=== PATIENT | male | born 1960 | race Caucasian/White ===

== ENCOUNTER 2023-02-27 19:07 | Inpatient (IN) | payer OTHER, SELFPAY ==
--- NOTE | 2023-02-26 22:03 | PM.EVENT ---
Documented by User: Mili Stern, ENGINEERING DESIGN MANAGER 02/26/23 22:08 Event Note Date of Service: 02/26/23 Event Note: Medical clearance review completed with night retail asset protection specialist hospitalist [phone] who reports she does not know this pt but is reviewing records. She prefers pt transfer on 02/27/23 a.m. as the hospitalist who works with him will be able to help with discharge. Pt has stable anemia, labs wnl. Heart rate range 50's-60's, EF 35%. No current atrial fibrillation. Pt has a wound on his right foot which has grown MRSA-he is on PO regime with full MRSA precautions. Time Spent With Patient Time: Total time managing care of this patient today ____ minutes. Documented by User: Russ Lewis MD 03/01/23 18:37 Event Note Date of Service: 03/01/23
--- NOTE | ~2023-02-27 | US_ITS ---
EXAMINATION: Ultrasound RADHA complete CLINICAL INFORMATION: Foot wound COMPARISON: Bilateral lower extremity arterial ultrasound from yesterday TECHNIQUE: Ankle pulse volume recordings, ankle pressure measurements and ankle brachial indices were obtained of the lower extremity arterial system bilaterally FINDINGS: Pulse volume recording waveforms are normal bilaterally. ABIs are normal bilaterally. The right RADHA measures 1.07. The left RADHA measures 1.15. US/US RADHA complete IMPRESSION: Normal arterial pulse volume recordings and ankle brachial indices.
--- NOTE | ~2023-02-27 | US_ITS ---
EXAMINATION: NONINVASIVE ASSESSMENT OF THE ARTERIES OF BOTH LOWER EXTREMITIES WITH BILATERAL LOWER EXTREMITY DUPLEX CLINICAL INFORMATION: Foot wound. TECHNIQUE: Bilateral duplex Doppler techniques with wave form analysis and measurement of velocities in the common femoral, profunda femoral, superficial femoral, popliteal and tibial arteries. The study was performed only at rest. COMPARISON: None FINDINGS: a) AT REST: RIGHT LE. Right direct duplex Doppler findings: Mild vessel wall calcification * Common femoral artery: 139 cm/s, Diastolic flow reversal: Yes * Superficial femoral artery (proximal, mid, distal): 111, 1-2 and 104 cm/s, Diastolic flow reversal: Yes * Popliteal artery: 120 cm/s, Diastolic flow reversal: Yes * Posterior tibial artery: 132 cm/s, Diastolic flow reversal: Yes LEFT LE. Left direct duplex Doppler findings: Mild vessel wall calcification luminal narrowing seen in the left posterior tibial artery. * Common femoral artery: 141 cm/s, Diastolic flow reversal: Yes * Superficial femoral artery (proximal, mid, distal): 131, 111 and 79 cm/s, Diastolic flow reversal: Yes * Popliteal artery: 128 cm/s, Diastolic flow reversal: Yes * Posterior tibial artery: 157 cm/s, Diastolic flow reversal: No. Monophasic. * US/US arterial duplex LE BI IMPRESSION: Mild proximal atherosclerotic disease. 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
--- NOTE | 2023-02-28 00:36 | PC.NURSE ---
Pt signed a 3 day on 02/27/2023, which should be up on 03/05/23.
[2023-02-28 02:27] VITALS: BMI 32.0
--- NOTE | 2023-02-28 05:08 | PC.NURSE ---
Reviewed MRSA diagnosis pt has,with Dr. Gomez, stated pt was cleared medically and does not need to be in private room/isolation.
--- NOTE | 2023-02-28 05:36 | PC.ADMIT ---
Pt is a 63 yo male admitted to the unit from a medical unit in [facility] after referral from CARE Team. Pt arrived on unit at 1930 on 02/27/2023. Pt signed a CV and shortly afterward signed a 3 day notice. Pt's medical issues are: AFib, cardiomyopathy, Cirrhosis, Hep C, COPD, MRSA infection in wound on right foot, dependent rubor of LE's, bilaterally as well as obstructive sleep apnea. Pt ambulates independently with a cane. Pt has a hx of etoh abuse, cocaine abuse and amphetamine abuse. Crisis report states that he recently relapsed on cocaine, amphetamines and etoh. States he last used cocaine and etoh prior to admission and was drinking a pint of vodka daily. 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 Pt reports that he has to be in court on Thursday, March 04 for charges of disturbing the peace . Pt reports intermittent years of sobriety followed by relapse over the last 30 years. Crisis report states he was increasingly depressed over his relapse and medical issues and his inability to get meds and connect with his OP providers. Pt states he is chronically homeless and had a plan to hang himself in the [place] and that he is big time suicidal and that a suicide attempt is extremely likely to occur if he were discharged from the hospital. Pt presented as pleasant and cooperative, good eye contact with linear thought process. call center agent provider Patricia notified of admission and orders obtained. Pt placed on 15 minute checks for safety. Reports feeling safe in hospital.
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
[2023-02-28 09:30] VITALS: BP 96/56; PULSE 72; RESP 18; TEMP 36.8; O2SAT 95
[2023-02-28] MEDS: Nicotine 21 MG PATCH.TD24 TRANSDERMA (09:36)
[2023-02-28] MEDS: Pregabalin 150 MG CAPSULE PO ×3 (09:37→18:19)
[2023-02-28] MEDS: Apixaban 5 MG TABLET PO ×2 (09:37→21:49)
[2023-02-28] MEDS: Cariprazine HCl 1.5 MG CAPSULE 4.5 MG PO (09:37)
[2023-02-28] MEDS: Aspirin Enteric Coated 81 MG TABLET.DR PO (09:38)
[2023-02-28] MEDS: Buprenorphine/Naloxone 8/2 mg FILM 1 FILM SUBLINGUAL ×3 (09:38→18:19)
[2023-02-28] MEDS: Linezolid 600 MG TABLET PO ×2 (10:10→21:49)
[2023-02-28] MEDS: Metoprolol Succinate ER 50 MG TAB.ER.24H PO (10:10)
[2023-02-28] MEDS: Amiodarone HCL 200 MG TABLET PO (10:10)
[2023-02-28] MEDS: diphenhydrAMINE HCL 25 MG CAPSULE PO ×2 (10:11→21:48)
[2023-02-28] MEDS: Sacubitril/Valsartan 24/26 1 TAB TABLET PO ×2 (10:11→21:49)
--- NOTE | 2023-02-28 10:26 | HO.PM.IMCN ---
History of Present Illness Data of Consult Service Date: 02/28/23 Requesting physician: Zaid Gomez Primary Care Provider: Ken Gauthier MD HPI 63-year-old man with history of CHF, AFib, cardiomyopathy, asthma, MRSA, COPD, SAILAJA admitted to for psychiatric care. Patient at this time has a wound to his right dorsal foot. He reports that this happened about a month ago, he developed lower extremity edema, was admitted to the hospital and felt like a vein had popped . He reports he had no treatment for this but was told he had MRSA and had been placed on antibiotics. On admission to [facility] does appear that he has been on linezolid. Other than that the patient has no other acute medical complaints is at this point hemodynamically stable. Medical consultation was placed for routine physical. Review of Systems Review of Systems: Denies any recent fever chills or decrease in appetite respiratory denies any shortness of breath coverage production cardiovascular Denied chest pain, reported lower extremity swelling gastrointestinal denies any dysphagia abdominal pain nausea vomiting or diarrhea genitourinary denies any dysuria frequency or hematuria musculoskeletal denies any joint pain or swelling neuropsych denies any weakness or seizures all other systems reviewed are negative [facility] Medical History Alcohol abuse Asthma Atrial fibrillation Cardiomyopathy CHF (congestive heart failure) Cocaine abuse Hepatitis C Hypertension MRSA (methicillin resistant staph aureus) culture positive Obstructive sleep apnea Pertinent family history: denied cardiac disease Social History Household Members: Friend(s) Housing: House Do you presently have visiting nurse or other home services: No Patient Tobacco Use Status: Current everyday Tobacco user Tobacco use type: Cigarette Cigarette Packs Per Day: 1 Cigarettes Per Day: 20.0 e-Cigarette/Vaping Use: Currently Using Patient Interested in Nicotine Replacement: Yes Use of substances other than those prescribed or required for medical reasons: No Substance Use Type: Amphetamines, Crack/Cocaine and IV Drugs Have you been hit, kicked, punched, or otherwise hurt by someone within the past year? If so, by whom?: No Do you feel safe in your current relationship?: Yes Is there a partner from a previous relationship who is making you feel unsafe now?: No Are you made to feel afraid or neglected: No Advance Directives: No Advance Directives Information Provided: No Do you have thoughts of harming others: None Do you have a plan to hurt others: No Plan Recently lost weight without trying: No Nutrition Risks: No Nutritional Risk Poor oral hygiene: No service: No Sexual orientation: Straight/Heterosexual Meds Allergies Allergy/AdvReac Type Severity Reaction Status Date / Time cefuroxime AdvReac Unknown Verified 02/27/23 23:26 codeine AdvReac Hives Verified 02/27/23 23:26 shellfish derived AdvReac Anaphylaxis Verified 02/27/23 23:26 Active Medications: Current Medications Acetaminophen (Acetaminophen 325 Mg Tablet) 650 mg PO Q6H PRN PRN Reason: Headache/Pain Mild Scale (1-3) Al Hydroxide/Mg Hydroxide (Magnesium Hydrox/Alum Hydrox 30 Ml Oral.Susp) 30 ml PO Q6H PRN PRN Reason: Heartburn/Nausea Albuterol Sulfate (Albuterol Sulfate 90 Mcg 8 Gm Inhaler) 1 puff INHALE Q6H PRN PRN Reason: Wheezing Amiodarone HCl (Amiodarone Hcl 200 Mg Tablet) 200 mg PO DAILY [facility] Last Admin: 02/28/23 10:10 Dose: 200 mg Apixaban (Apixaban 5 Mg Tablet) 5 mg PO BID [facility] Last Admin: 02/28/23 09:37 Dose: 5 mg Aspirin (Aspirin Enteric Coated 81 Mg Tablet.Dr) 81 mg PO DAILY [facility] Last Admin: 02/28/23 09:38 Dose: 81 mg Buprenorphine/Naloxone (Buprenorphine/Naloxone 8/2 Mg Film) 1 film SUBLINGUAL TID [facility] Last Admin: 02/28/23 09:38 Dose: 1 film Cariprazine (Cariprazine Hcl 1.5 Mg Capsule) 4.5 mg PO DAILY [facility] Last Admin: 02/28/23 09:37 Dose: 4.5 mg Clonazepam (Clonazepam 0.5 Mg Tablet) 0.5 mg PO BID PRN PRN Reason: anxiety Diphenhydramine HCl (Diphenhydramine Hcl 25 Mg Capsule) 25 mg PO Q6H PRN PRN Reason: Itching Last Admin: 02/28/23 10:11 Dose: 25 mg Fluticasone/Vilanterol (Fluticasone/Vilanterol 200/25 Blst.W.Dev) 1 puff INHALE RDAILY [facility] Furosemide (Furosemide 20 Mg Tablet) 20 mg PO DAILY [facility] Last Admin: 02/28/23 10:17 Dose: Not Given Hydroxyzine HCl (Hydroxyzine Hcl 25 Mg Tablet) 25 mg PO Q6H PRN PRN Reason: Anxiety Ibuprofen (Ibuprofen 400 Mg Tablet) 400 mg PO TIDWM [facility] Linezolid (Linezolid 600 Mg Tablet) 600 mg PO Q12H [facility] Last Admin: 02/28/23 10:10 Dose: 600 mg Magnesium Hydroxide (Milk Of Magnesia 30 Ml Oral.Susp) 30 ml PO DAILY PRN PRN Reason: Constipation Metoprolol Succinate (Metoprolol Succinate Er 50 Mg Tab.Er.24h) 50 mg PO DAILY [facility]; Protocol Last Admin: 02/28/23 10:10 Dose: 50 mg Nicotine (Nicotine 21 Mg Patch.Td24) 21 mg TRANSDERMA DAILY [facility] Last Admin: 02/28/23 09:36 Dose: 21 mg Nicotine Polacrilex (Nicotine Polacrilex 2 Mg Gum) 4 mg BUCCAL Q2H PRN PRN Reason: Nicotine Cravings Non-Formulary Medication (Eplerenone) 25 mg PO DAILY [facility] Pt Own (Camphor- (Menthol Lotion)) 1 applic TOPICAL BID PRN PRN Reason: Itching Olanzapine (Olanzapine 5 Mg Tablet) 5 mg PO TID PRN PRN Reason: agitation Omeprazole (Omeprazole 20 Mg Capsule.Dr) 20 mg PO DAILY@1630 [facility] Oxycodone HCl (Oxycodone Hcl Immed Release 5 Mg Tablet) 5 mg PO Q6H PRN PRN Reason: Pain, Severe Prazosin HCl (Prazosin Hcl 1 Mg Capsule) 4 mg PO BEDTIME [facility]; Protocol Pregabalin (Pregabalin 150 Mg Capsule) 150 mg PO TID [facility] Last Admin: 02/28/23 09:37 Dose: 150 mg Sacubitril/Valsartan (Sacubitril/Valsartan 1 Tab Tablet) 1 tab PO BID [facility]; Protocol Last Admin: 02/28/23 10:11 Dose: 1 tab Tiotropium Langley (Tiotropium Langley 2.5 Mcg Inhaler) 2 puff INHALE RDAILY [facility] Trazodone HCl (Trazodone Hcl 50 Mg Tablet) 50 mg PO BEDTIME MRX1 PRN PRN Reason: Insomnia Physical Exam Vital Signs and Narrative: Vital Signs: BMI result Body Mass Index 32.0 Appearing in no acute distress head is normocephalic atraumatic eyes pupils are PERRLA sclera is anicteric mouth throat mucous membranes are intact and moist neck is supple no lymphadenopathy, no JVD noted lung sounds are clear to auscultation heart regular rate rhythm, clear S1, S2 positive bowel sounds, abdomen is soft, nontender neuro patient is alert x3, no focal deficits Right foot dorsal wound, pink granulating tissue noted, no eschar, dry skin to plantar aspect of foot Results Labs 03/03/23 10:36 03/03/23 10:36 Assessment and Plan (1) Major depression: Status: Acute Plan 63-year-old man with multiple chronic medical problems admitted to [facility] for psychiatric care Vascular foot wound. Unspecified No previous history of peripheral vascular disease Will obtain a BI, vascular surgery consultation Continue aspirin Nonstick dressing to right dorsal foot wound Recent history of MRSA, likely in the right foot wound Infectious disease consultation Cardiomyopathy. Unspecified appears euvolemic Continue Entresto Obtain baseline echocardiogram Atrial fibrillation No RVR Continue metoprolol, amiodarone and Eliquis Obstructive sleep apnea Will order CPAP COPD. No exacerbation Continue Breo and Spiriva Hepatitis-C Treated previously History of alcohol abuse Monitor for any signs of withdrawal May placed on CIWA scale if needed Substance abuse Reports history of occasional cocaine use On Suboxone for opiate use Obesity. BMI 32.0 Discussed importance of weight management as this may be contributing to worsening of other comorbidities DVT prophylaxis with Eliquis Time Spent With Patient Time: Total time managing care of this patient today ____ minutes.
[2023-02-28 10:33] VITALS: BP 113/65; PULSE 71; O2SAT 96
[2023-02-28] MEDS: Fluticasone/Vilanterol 200/25 BLST.W.DEV 1 PUFF INHALE (11:16)
[2023-02-28 16:07] VITALS: BMI 29.0
[2023-02-28] MEDS: Ibuprofen 400 MG TABLET PO (17:23)
[2023-02-28] MEDS: Omeprazole 20 MG CAPSULE.DR PO (17:23)
[2023-02-28 20:25] VITALS: BP 107/61; PULSE 63; RESP 18; TEMP 36.7; O2SAT 97
[2023-02-28] MEDS: clonazePAM 0.5 MG TABLET PO (21:48)
[2023-02-28] MEDS: Prazosin HCL 1 MG CAPSULE 4 MG PO (21:49)
[2023-03-01 09:08] VITALS: BP 113/53; PULSE 90; RESP 16; TEMP 36.6; O2SAT 97
[2023-03-01] MEDS: Sacubitril/Valsartan 24/26 1 TAB TABLET PO ×2 (09:10→20:36)
[2023-03-01] MEDS: Metoprolol Succinate ER 50 MG TAB.ER.24H PO (09:10)
[2023-03-01] MEDS: Nicotine 21 MG PATCH.TD24 TRANSDERMA (09:10)
[2023-03-01] MEDS: Furosemide 20 MG TABLET PO (09:11)
[2023-03-01] MEDS: Cariprazine HCl 1.5 MG CAPSULE 4.5 MG PO (09:11)
[2023-03-01] MEDS: Aspirin Enteric Coated 81 MG TABLET.DR PO (09:11)
[2023-03-01] MEDS: Ibuprofen 400 MG TABLET PO ×3 (09:12→17:50)
[2023-03-01] MEDS: Apixaban 5 MG TABLET PO ×2 (09:12→20:36)
[2023-03-01] MEDS: Linezolid 600 MG TABLET PO ×2 (09:12→20:36)
[2023-03-01] MEDS: Fluticasone/Vilanterol 200/25 BLST.W.DEV 1 PUFF INHALE (09:14)
[2023-03-01] MEDS: Pregabalin 150 MG CAPSULE PO ×3 (09:15→17:50)
[2023-03-01] MEDS: Amiodarone HCL 200 MG TABLET PO (09:15)
[2023-03-01] MEDS: Buprenorphine/Naloxone 8/2 mg FILM 1 FILM SUBLINGUAL ×3 (09:18→18:39)
--- NOTE | 2023-03-01 09:25 | HO.PSYCHPN ---
Subjective Subjective Date of Service: 03/01/23 Reason For Visit: F33.2, F10.20, F14.10 Subjective Notes: Conditional Voluntary and 3 Day Healthcare Proxy: No Guardianship: No Medical Problems Affecting Mental Status: Yes (Right foot wound/MRSA) Interim History: Patient was seen and discussed in rounds today. Records and plans were reviewed. He has settled in but is eager to leave soon. He did receive his CPAP but did not want to use it because he did not want to have somebody sitting there with him as is the policy here. He is requesting something for dry skin on his knees, lower leg and shoulders which I ordered. No other complaints. No side effects. No changes were made otherwise. Medication Compliance: Yes Side effects from medications: No Attending Groups: Yes Review of Systems Review of Systems Right foot wound Yes all other systems are reviewed and are negative Mental Status Exam Mental Status Exam Narrative: In today's visit he is alert, oriented and pleasant. Normal speech. Little eye contact. He is able to give adequate information with spontaneity and elaboration. No auditory or visual hallucinations. No delusions. He denies any current suicidal ideations and states that his comments at the other hospital was because of frustration over his medical problems and physical impediment. Judgment is intact Diagnostics Vital Signs (24Hr): Vital Signs - 24 hr 02/28/23 09:30 02/28/23 10:33 02/28/23 20:25 Temperature 98.3 F 98.0 F Pulse Rate 72 71 63 Respiratory Rate 18 18 Blood Pressure 96/56 L 113/65 107/61 Pulse Oximetry 95 96 97 Oxygen Delivery Method Room Air Room Air Room Air 03/01/23 09:08 Temperature 97.9 F Pulse Rate 90 Respiratory Rate 16 Blood Pressure 113/53 L Pulse Oximetry 97 Oxygen Delivery Method Room Air BMI result Body Mass Index 29.0 Medications Medications Current Medications Acetaminophen (Acetaminophen 325 Mg Tablet) 650 mg PO Q6H PRN PRN Reason: Headache/Pain Mild Scale (1-3) Al Hydroxide/Mg Hydroxide (Magnesium Hydrox/Alum Hydrox 30 Ml Oral.Susp) 30 ml PO Q6H PRN PRN Reason: Heartburn/Nausea Albuterol Sulfate (Albuterol Sulfate 90 Mcg 8 Gm Inhaler) 1 puff INHALE Q6H PRN PRN Reason: Wheezing Amiodarone HCl (Amiodarone Hcl 200 Mg Tablet) 200 mg PO DAILY [facility] Last Admin: 03/01/23 09:15 Dose: 200 mg Apixaban (Apixaban 5 Mg Tablet) 5 mg PO BID [facility] Last Admin: 03/01/23 09:12 Dose: 5 mg Aspirin (Aspirin Enteric Coated 81 Mg Tablet.Dr) 81 mg PO DAILY [facility] Last Admin: 03/01/23 09:11 Dose: 81 mg Buprenorphine/Naloxone (Buprenorphine/Naloxone 8/2 Mg Film) 1 film SUBLINGUAL 0900,1300,1800 [facility] Last Admin: 03/01/23 09:18 Dose: 1 film Cariprazine (Cariprazine Hcl 1.5 Mg Capsule) 4.5 mg PO DAILY [facility] Last Admin: 03/01/23 09:11 Dose: 4.5 mg Clonazepam (Clonazepam 0.5 Mg Tablet) 0.5 mg PO BID PRN PRN Reason: anxiety Last Admin: 02/28/23 21:48 Dose: 0.5 mg Diphenhydramine HCl (Diphenhydramine Hcl 25 Mg Capsule) 25 mg PO Q6H PRN PRN Reason: Itching Last Admin: 02/28/23 21:48 Dose: 25 mg Fluticasone/Vilanterol (Fluticasone/Vilanterol 200/25 Blst.W.Dev) 1 puff INHALE RDAILY [facility] Last Admin: 03/01/23 09:14 Dose: 1 puff Furosemide (Furosemide 20 Mg Tablet) 20 mg PO DAILY [facility] Last Admin: 03/01/23 09:11 Dose: 20 mg Hydroxyzine HCl (Hydroxyzine Hcl 25 Mg Tablet) 25 mg PO Q6H PRN PRN Reason: Anxiety Ibuprofen (Ibuprofen 400 Mg Tablet) 400 mg PO TIDWM [facility] Last Admin: 03/01/23 09:12 Dose: 400 mg Linezolid (Linezolid 600 Mg Tablet) 600 mg PO Q12H [facility] Last Admin: 03/01/23 09:12 Dose: 600 mg Magnesium Hydroxide (Milk Of Magnesia 30 Ml Oral.Susp) 30 ml PO DAILY PRN PRN Reason: Constipation Metoprolol Succinate (Metoprolol Succinate Er 50 Mg Tab.Er.24h) 50 mg PO DAILY [facility]; Protocol Last Admin: 03/01/23 09:10 Dose: 50 mg Nicotine (Nicotine 21 Mg Patch.Td24) 21 mg TRANSDERMA DAILY [facility] Last Admin: 03/01/23 09:10 Dose: 21 mg Nicotine Polacrilex (Nicotine Polacrilex 2 Mg Gum) 4 mg BUCCAL Q2H PRN PRN Reason: Nicotine Cravings Non-Formulary Medication (Eplerenone) 25 mg PO DAILY [facility] Pt Own (Camphor- (Menthol Lotion)) 1 applic TOPICAL BID PRN PRN Reason: Itching Last Admin: 03/01/23 09:14 Dose: 1 applic Olanzapine (Olanzapine 5 Mg Tablet) 5 mg PO TID PRN PRN Reason: agitation Omeprazole (Omeprazole 20 Mg Capsule.Dr) 20 mg PO DAILY@1630 [facility] Last Admin: 02/28/23 17:23 Dose: 20 mg Oxycodone HCl (Oxycodone Hcl Immed Release 5 Mg Tablet) 5 mg PO Q6H PRN PRN Reason: Pain, Severe Prazosin HCl (Prazosin Hcl 1 Mg Capsule) 4 mg PO BEDTIME [facility]; Protocol Last Admin: 02/28/23 21:49 Dose: 4 mg Pregabalin (Pregabalin 150 Mg Capsule) 150 mg PO 0900,1300,1800 [facility] Last Admin: 03/01/23 09:15 Dose: 150 mg Sacubitril/Valsartan (Sacubitril/Valsartan 1 Tab Tablet) 1 tab PO BID [facility]; Protocol Last Admin: 03/01/23 09:10 Dose: 1 tab Tiotropium [place] (Tiotropium [place] 2.5 Mcg Inhaler) 2 puff INHALE RDAILY [facility] Last Admin: 03/01/23 09:14 Dose: 2 puff Trazodone HCl (Trazodone Hcl 50 Mg Tablet) 50 mg PO BEDTIME MRX1 PRN PRN Reason: Insomnia Allergies Allergies Allergy/AdvReac Type Severity Reaction Status Date / Time cefuroxime AdvReac Unknown Verified 02/27/23 23:26 codeine AdvReac Hives Verified 02/27/23 23:26 shellfish derived AdvReac Anaphylaxis Verified 02/27/23 23:26 Assessment & Plan Assessment & Plan (1) Major depression: Status: Acute Code(s): F32.9 - Major depressive disorder, single episode, unspecified Plan 63-year-old man with multiple chronic medical problems admitted to for psychiatric care Vascular foot wound. Unspecified No previous history of peripheral vascular disease Will obtain a BI, vascular surgery consultation Continue aspirin Nonstick dressing to right dorsal foot wound Recent history of MRSA, likely in the right foot wound Infectious disease consultation Cardiomyopathy. Unspecified appears euvolemic Continue Entresto Obtain baseline echocardiogram Atrial fibrillation No RVR Continue metoprolol, amiodarone and Eliquis Obstructive sleep apnea Will order CPAP COPD. No exacerbation Continue Breo and Spiriva Hepatitis-C Treated previously History of alcohol abuse Monitor for any signs of withdrawal May placed on CIWA scale if needed Substance abuse Reports history of occasional cocaine use On Suboxone for opiate use Obesity. BMI 32.0 Discussed importance of weight management as this may be contributing to worsening of other comorbidities DVT prophylaxis with Eliquis 03/01: Continue current plans and regimen Reason for continued inpatient stay Substantial Risk for: harm to self Time Spent With Patient Time: Total time managing care of this patient today ____ minutes.
[2023-03-01] MEDS: Capsaicin 0.025% Cream 60 GM TUBE 1 APPL TOPICAL (11:02)
[2023-03-01] MEDS: Omeprazole 20 MG CAPSULE.DR PO (17:50)
[2023-03-01 20:42] VITALS: BP 100/58; PULSE 67; TEMP 36.3; O2SAT 97
[2023-03-01] MEDS: hydrOXYzine HCL 25 MG TABLET PO (20:57)
--- NOTE | 2023-03-02 04:01 | PC.RT ---
Pt refused to wear CPAP
--- NOTE | 2023-03-02 07:00 | CA_ITS ---
Transthoracic Echocardiogram Patient (Last, First, Middle): Tre Richmond, Gender: Male Date of : 1960 Age: 63 Procedure Date: 03/02/2023 Procedure Type: Transthoracic Echocardiogram Location: [address] Height: 187.96 cm Weight: 105.69 kg BSA: 2.32 m2 Heart Rate: bpm BP: 100 / 58 mmHg Crew Supervisor: Referring MD: Dana Kathleen NP Symptoms: CMP Study Quality: Adequate ECG Rhythm: Sinus Conclusions: - Mildly increased left ventricular cavity size. There is mildly increased left ventricular wall thickness. The left ventricular systolic function is normal. The visually estimated ejection fraction is between 55-60%. - E/E prime ratio is between 8 and 15 consistent with indeterminate filling pressures. - There is normal right ventricular systolic function. Mild to moderate RV dilation. - There is mild dilatation of the ascending aorta measuring 4.20 cm. Findings Left Ventricle Mildly increased left ventricular cavity size. There is mildly increased left ventricular wall thickness. The left ventricular systolic function is normal. The visually estimated ejection fraction is between 55-60%. There is no evidence of regional wall motion abnormalities. Abnormal diastolic function is noted. Spectral Doppler is indicative of a pseudonormal filling pattern. E/E prime ratio is between 8 and 15 consistent with indeterminate filling pressures. Right Ventricle There is normal right ventricular systolic function. Mild to moderate RV dilation. Atria The left atrium is moderately dilated. Aortic Valve Normal aortic valve structure and function. There is no aortic valve stenosis. There is no aortic valve regurgitation. Mitral Valve The mitral valve appears normal. There is trace mitral valve regurgitation. There is no mitral valve stenosis. Pulmonic Valve The pulmonic valve is likely normal. Tricuspid Valve Normal tricuspid valve structure and function. The right ventricular systolic pressure is 30 mmHg. Normal right atrial pressure. There is no evidence of pulmonary hypertension. Great Vessels There is mild dilatation of the ascending aorta measuring 4.20 cm. The visualized portions of the pulmonary artery and branches are normal. Venous The inferior vena cava is normal in size and collapses greater than 50% with inspiration. Pericardium/Pleural There is no evidence of pericardial effusion. Prior Study Comparison No prior study available for comparison. Measurements 2D Linear Measurements IVSd: 1.04 0.6-0.9/0.6-1.0 cm LVIDd: 5.33 3.9-5.3/4.2-5.9 cm LVIDd Index: 2.30 2.4-3.2/2.2-3.1 cm/m2 LVIDs: 3.37 2.0-3.6 cm LVPWd: 1.13 0.7-1.1 cm Ao Root: 3.60 2.1-3.5 cm LA Diam: 4.50 2.7-3.8/3.0-4.0 cm LAIDs Index: 1.94 1.5-2.3 cm/m2 LV Mass: 281.27 67-162/88-224 g LV Mass Index: 121.24 43-95/49-115 g/m2 LVOT Diam: 2.40 3.0+(-)1.3 cm 2D Systolic Function EF 4C: 59.90 >55% EF 2C: 57.30 >55% EF BiP: 61.00 >55% Mitral Valve MV Pk E: 0.75 MV PK A: 0.53 MV Decel Time: 227.00 E/A: 1.40 E'Lateral: 9.46 E'Medial: 4.68 E/E' Med: 16.00 E/E' Lat: 7.90 PHT: 66.00 MVA PHT: 3.33 Decel Roane: 3.31 Aortic Valve AoV Pk Angel: 1.43 AoV Mn Angel: 0.89 AoV VTI: 0.35 AoV Pk Grad: 8.00 Aov Mn Grad: 4.00 WILLIAN Cont.VTI: 2.90 LVOT LVOT Pk Angel: 1.03 LVOT Mn Angel: 0.70 LVOT VTI: 0.22 LVOT Pk Grad: 4.00 LVOT Mn Grad: 2.00 LVOT Diam: 2.40 LVOT Area: 4.52 Diastolic Function MV Pk E: 0.75 MV Pk A: 0.53 E/A: 1.40 E'Medial: 4.68 E/E' Med: 16.00 E' Laterial: 9.46 E/E' Lat: 7.90 Right Ventricle TAPSE (mm): 34.00 TVS' Angel: 17.00 Tricuspid Valve TR Pk Angel: 2.59 TR Pk Grad: 27.00 RA Press: 3.00 RVSP: 30.00 Great Vessels Aorta Ao Root-2D: 3.60 2.0-3.7 cm Ao Asc: 4.20 2.1-3.4 cm Pulmonary Valve PV Pk Angel: 1.29 Peak PV Grad: 7.00 Updated in Other Vendor System with Status of Final Reji Perez MD electronically signed on 03/02/2023 8:33:26 PM with status of Final
[2023-03-02 09:15] VITALS: BP 112/68; PULSE 68; RESP 16; TEMP 36.7; O2SAT 95
[2023-03-02] MEDS: Nicotine 21 MG PATCH.TD24 TRANSDERMA (09:16)
[2023-03-02] MEDS: Linezolid 600 MG TABLET PO ×2 (09:17→21:26)
[2023-03-02] MEDS: Furosemide 20 MG TABLET PO (09:17)
[2023-03-02] MEDS: Apixaban 5 MG TABLET PO ×2 (09:17→21:27)
[2023-03-02] MEDS: Sacubitril/Valsartan 24/26 1 TAB TABLET PO ×2 (09:17→21:26)
[2023-03-02] MEDS: Pregabalin 150 MG CAPSULE PO ×3 (09:17→18:23)
[2023-03-02] MEDS: Cariprazine HCl 1.5 MG CAPSULE 4.5 MG PO (09:17)
[2023-03-02] MEDS: Amiodarone HCL 200 MG TABLET PO (09:18)
[2023-03-02] MEDS: Metoprolol Succinate ER 50 MG TAB.ER.24H PO (09:18)
[2023-03-02] MEDS: Aspirin Enteric Coated 81 MG TABLET.DR PO (09:18)
[2023-03-02] MEDS: Ibuprofen 400 MG TABLET PO ×3 (09:18→17:32)
[2023-03-02] MEDS: Buprenorphine/Naloxone 8/2 mg FILM 1 FILM SUBLINGUAL ×3 (09:18→18:23)
[2023-03-02] MEDS: Fluticasone/Vilanterol 200/25 BLST.W.DEV 1 PUFF INHALE (09:20)
[2023-03-02] MEDS: oxyCODONE HCl Immed Release 5 MG TABLET PO ×2 (10:55→17:32)
--- NOTE | 2023-03-02 10:55 | P.PNPSI_ITS ---
Subjective Subjective Date of Service: 03/02/23 Reason For Visit: F33.2, F10.20, F14.10 Subjective Notes: Conditional Voluntary and 3 Day Healthcare Proxy: No Guardianship: No Medical Problems Affecting Mental Status: Yes (Right foot wound/MRSA) Interim History: Patient was seen and discussed in rounds today. Records and plans were reviewed. He has been cooperative and has settled in well. He continues to complain of right shoulder pain. He is isolative or pacing. He does have restless sleep but still does not want use the CPAP. He also refused prazosin. No other complaints. No changes were made today. No SI reported Medication Compliance: Yes Side effects from medications: No Attending Groups: Yes Review of Systems Review of Systems Right shoulder and knee pain Yes all other systems are reviewed and are negative Mental Status Exam Mental Status Exam Narrative: In today's visit he is alert, oriented and pleasant. Normal speech. Little eye contact. He is able to give adequate information with spontaneity and elaboration. No auditory or visual hallucinations. No delusions. He denies any current suicidal ideations and states that his comments at the other hospital was because of frustration over his medical problems and physical impediment. Judgment is intact Diagnostics Vital Signs (24Hr): Vital Signs - 24 hr 03/01/23 20:42 03/02/23 09:15 Temperature 97.4 F 98.0 F Pulse Rate 67 68 Respiratory Rate 16 Blood Pressure 100/58 L 112/68 Pulse Oximetry 97 95 Oxygen Delivery Method Room Air Room Air BMI result Body Mass Index 29.0 Imaging Radiology Impressions: ITS Impressions Duplex Scan Lower Extremity Artery 02/28/23 14:25 IMPRESSION: Mild proximal atherosclerotic disease. 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 Abd US [id number] 03/01/23 14:00 IMPRESSION: Normal arterial pulse volume recordings and ankle brachial indices. Medications Medications Current Medications Acetaminophen (Acetaminophen 325 Mg Tablet) 650 mg PO Q6H PRN PRN Reason: Headache/Pain Mild Scale (1-3) Al Hydroxide/Mg Hydroxide (Magnesium Hydrox/Alum Hydrox 30 Ml Oral.Susp) 30 ml PO Q6H PRN PRN Reason: Heartburn/Nausea Albuterol Sulfate (Albuterol Sulfate 90 Mcg 8 Gm Inhaler) 1 puff INHALE Q6H PRN PRN Reason: Wheezing Amiodarone HCl (Amiodarone Hcl 200 Mg Tablet) 200 mg PO DAILY [facility] Last Admin: 03/02/23 09:18 Dose: 200 mg Apixaban (Apixaban 5 Mg Tablet) 5 mg PO BID [facility] Last Admin: 03/02/23 09:17 Dose: 5 mg Aspirin (Aspirin Enteric Coated 81 Mg Tablet.Dr) 81 mg PO DAILY [facility] Last Admin: 03/02/23 09:18 Dose: 81 mg Buprenorphine/Naloxone (Buprenorphine/Naloxone 8/2 Mg Film) 1 film SUBLINGUAL 0900,1300,1800 [facility] Last Admin: 03/02/23 09:18 Dose: 1 film Capsaicin (Capsaicin 0.025% Cream 60 Gm Tube) 1 appl TOPICAL TID PRN; Protocol PRN Reason: Pain, Moderate(Pain Scale 4-6) Last Admin: 03/01/23 11:02 Dose: 1 appl Cariprazine (Cariprazine Hcl 1.5 Mg Capsule) 4.5 mg PO DAILY [facility] Last Admin: 03/02/23 09:17 Dose: 4.5 mg Clonazepam (Clonazepam 0.5 Mg Tablet) 0.5 mg PO BID PRN PRN Reason: anxiety Last Admin: 02/28/23 21:48 Dose: 0.5 mg Diphenhydramine HCl (Diphenhydramine Hcl 25 Mg Capsule) 25 mg PO Q6H PRN PRN Reason: Itching Last Admin: 02/28/23 21:48 Dose: 25 mg Fluticasone/Vilanterol (Fluticasone/Vilanterol 200/25 Blst.W.Dev) 1 puff INHALE RDAILY [facility] Last Admin: 03/02/23 09:20 Dose: 1 puff Furosemide (Furosemide 20 Mg Tablet) 20 mg PO DAILY [facility] Last Admin: 03/02/23 09:17 Dose: 20 mg Hydroxyzine HCl (Hydroxyzine Hcl 25 Mg Tablet) 25 mg PO Q6H PRN PRN Reason: Anxiety Last Admin: 03/01/23 20:57 Dose: 25 mg Ibuprofen (Ibuprofen 400 Mg Tablet) 400 mg PO TIDWM [facility] Last Admin: 03/02/23 09:18 Dose: 400 mg Linezolid (Linezolid 600 Mg Tablet) 600 mg PO Q12H [facility] Last Admin: 03/02/23 09:17 Dose: 600 mg Magnesium Hydroxide (Milk Of Magnesia 30 Ml Oral.Susp) 30 ml PO DAILY PRN PRN Reason: Constipation Metoprolol Succinate (Metoprolol Succinate Er 50 Mg Tab.Er.24h) 50 mg PO DAILY [facility]; Protocol Last Admin: 03/02/23 09:18 Dose: 50 mg Nicotine (Nicotine 21 Mg Patch.Td24) 21 mg TRANSDERMA DAILY [facility] Last Admin: 03/02/23 09:16 Dose: 21 mg Nicotine Polacrilex (Nicotine Polacrilex 2 Mg Gum) 4 mg BUCCAL Q2H PRN PRN Reason: Nicotine Cravings Non-Formulary Medication (Eplerenone) 25 mg PO DAILY [facility] Pt Own (Camphor- (Menthol Lotion)) 1 applic TOPICAL BID PRN PRN Reason: Itching Last Admin: 03/01/23 09:14 Dose: 1 applic Olanzapine (Olanzapine 5 Mg Tablet) 5 mg PO TID PRN PRN Reason: agitation Omeprazole (Omeprazole 20 Mg Capsule.Dr) 20 mg PO DAILY@1630 [facility] Last Admin: 03/01/23 17:50 Dose: 20 mg Oxycodone HCl (Oxycodone Hcl Immed Release 5 Mg Tablet) 5 mg PO Q6H PRN PRN Reason: Pain, Severe Prazosin HCl (Prazosin Hcl 1 Mg Capsule) 4 mg PO BEDTIME [facility]; Protocol Last Admin: 03/01/23 20:34 Dose: Not Given Pregabalin (Pregabalin 150 Mg Capsule) 150 mg PO 0900,1300,1800 [facility] Last Admin: 03/02/23 09:17 Dose: 150 mg Sacubitril/Valsartan (Sacubitril/Valsartan 1 Tab Tablet) 1 tab PO BID [facility]; Protocol Last Admin: 03/02/23 09:17 Dose: 1 tab Tiotropium [place] (Tiotropium [place] 2.5 Mcg Inhaler) 2 puff INHALE RDAILY [facility] Last Admin: 03/02/23 09:20 Dose: 2 puff Trazodone HCl (Trazodone Hcl 50 Mg Tablet) 50 mg PO BEDTIME MRX1 PRN PRN Reason: Insomnia Allergies Allergies Allergy/AdvReac Type Severity Reaction Status Date / Time cefuroxime AdvReac Unknown Verified 02/27/23 23:26 codeine AdvReac Hives Verified 02/27/23 23:26 shellfish derived AdvReac Anaphylaxis Verified 02/27/23 23:26 Assessment & Plan Assessment & Plan (1) Major depression: Status: Acute Code(s): F32.9 - Major depressive disorder, single episode, unspecified Plan 63-year-old man with multiple chronic medical problems admitted to [facility] for psychiatric care Vascular foot wound. Unspecified No previous history of peripheral vascular disease Will obtain a BI, vascular surgery consultation Continue aspirin Nonstick dressing to right dorsal foot wound Recent history of MRSA, likely in the right foot wound Infectious disease consultation Cardiomyopathy. Unspecified appears euvolemic Continue Entresto Obtain baseline echocardiogram Atrial fibrillation No RVR Continue metoprolol, amiodarone and Eliquis Obstructive sleep apnea Will order CPAP COPD. No exacerbation Continue Breo and Spiriva Hepatitis-C Treated previously History of alcohol abuse Monitor for any signs of withdrawal May placed on CIWA scale if needed Substance abuse Reports history of occasional cocaine use On Suboxone for opiate use Obesity. BMI 32.0 Discussed importance of weight management as this may be contributing to worsening of other comorbidities DVT prophylaxis with Eliquis 03/02: Continue current regimen and plans Reason for continued inpatient stay Substantial Risk for: harm to self Time Spent With Patient Time: Total time managing care of this patient today ____ minutes.
[2023-03-02] MEDS: Omeprazole 20 MG CAPSULE.DR PO (17:33)
[2023-03-02 20:00] VITALS: BP 107/56; PULSE 60; RESP 16; TEMP 36; O2SAT 99
[2023-03-02] MEDS: Prazosin HCL 1 MG CAPSULE 4 MG PO (21:25)
[2023-03-02] MEDS: Acetaminophen 325 MG TABLET 650 MG PO (21:35)
[2023-03-02] MEDS: clonazePAM 0.5 MG TABLET PO (21:36)
[2023-03-02 23:05] VITALS: PULSE 57; O2SAT 100
[2023-03-03] MEDS: oxyCODONE HCl Immed Release 5 MG TABLET PO (06:58)
[2023-03-03 08:50] VITALS: BP 100/54; PULSE 54; RESP 16; TEMP 36.9; O2SAT 98
[2023-03-03] MEDS: Fluticasone/Vilanterol 200/25 BLST.W.DEV 1 PUFF INHALE (08:56)
[2023-03-03] MEDS: Cariprazine HCl 1.5 MG CAPSULE 4.5 MG PO (08:56)
[2023-03-03] MEDS: Furosemide 20 MG TABLET PO (08:56)
[2023-03-03] MEDS: Sacubitril/Valsartan 24/26 1 TAB TABLET PO (08:57)
[2023-03-03] MEDS: Ibuprofen 400 MG TABLET PO (08:57)
[2023-03-03] MEDS: Apixaban 5 MG TABLET PO (08:58)
[2023-03-03] MEDS: Aspirin Enteric Coated 81 MG TABLET.DR PO (08:59)
[2023-03-03] MEDS: Nicotine 21 MG PATCH.TD24 TRANSDERMA (09:21)
[2023-03-03 09:58] VITALS: BP 87/53; PULSE 62
[2023-03-03 09:59] VITALS: BP 72/43; PULSE 62
[2023-03-03 10:30] VITALS: BP 95/57; PULSE 61
[2023-03-03 10:58] LABS: Hematocrit 34.2 % (42.0-52.0); Hemoglobin 11.1 g/dl (14.0-18.0); Mean Corpuscular HGB Conc 32.5 g/dl (31.0-36.0); Mean Corpuscular Hemoglobin 29.5 pg (27.0-33.0); Mean Platelet Volume 10.7 fL (9.4-12.4); Platelet Count 225 X10*3/uL (160-400); Red Blood Count 3.76 X10*6/uL (4.60-5.80); White Blood Count 6.5 X10*3/uL (4.8-10.8)
[2023-03-03 11:33] LABS: Anion Gap 16 (12-20); Blood Urea Nitrogen 33 mg/dL (9-16); Calcium 9.5 mg/dL (8.4-10.2); Carbon Dioxide 22 mmol/L (22-29); Chloride 100 mmol/L (96-108); Estimated Glomerular Filt Rate 33; Glucose Random 96 mg/dL (60-115); Potassium 5.3 mmol/L (3.3-5.1); Sodium 133 mmol/L (135-145)
[2023-03-03] MEDS: Amiodarone HCL 200 MG TABLET PO (11:38)
[2023-03-03] MEDS: Linezolid 600 MG TABLET PO (11:38)
--- NOTE | 2023-03-03 12:01 | PM.CNCAR ---
History of Present Illness History of Present Illness Date of Service: 03/03/23 Requesting physician: Yannick Cutler Consult reason: other (Low blood pressure) Chief complaint: Orthostatic lightheadedness Narrative: I was consulted to see Tre in cardiology consultation today for low blood pressure. He is a 63-year-old male, history obtained from the patient. He is a good historian. He said about 4 years ago he was diagnosed with severe cardiomyopathy and congestive heart failure and was told that he had a year to live where he comes from. He subsequently took a 2nd opinion in [place]. He was then started on medical therapy and says gradual lead to improvement in his heart failure syndrome. About 2 years ago he developed atrial fibrillation. He said he has had 3 ablation times in the last ablation attempt was a long procedure followed by a failure. He was subsequently started on amiodarone therapy and had I thing successful cardioversion. Since then he has been on amiodarone 200 mg daily and oral anticoagulation with apixaban. 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 He has not had any follow-up. He does not measure his blood pressure usually at home but says that he does occasionally get orthostatic lightheadedness when he gets up quickly. He has not had any recent bleeding issues. Does not drink enough water. He is on Entresto, metoprolol for neurohormonal modulation. Also on prazosin as well as eplerenone and Lasix. He said he was admitted about a month ago with bilateral lower extremity swelling and decompensated heart failure was diuresed. None of the records are available for review. He was transferred to [facility] as at other hospital in [facility] he expressed that he would rather kill himself. He said he does not have any significant psychiatric issue and is currently not depressed. He is being evaluated by psychiatric dream. Del Angel involved by the hospitalist team in management of this patient due to episode of orthostatic lightheadedness today while he was walking up to the room lasted for about a minute. Subsequently was noted to have low blood pressure systolic blood pressure in the 70s. He had received most of his medications in the morning. Since then he has drank a lot of fluid. His subsequent blood pressure currently systolic 95. He is not having any lightheadedness. Denies any chest pain or shortness of breath. He does have a wound on his right foot and has received prolonged antibiotics and currently on oral anti biotics for it. Echocardiogram done yesterday showed preserved LV ejection fraction. Review of Systems Constitutional: Constitutional: Reports no additional constitutional complaints Eyes: Eyes: Reports no additional eye complaints Cardiovascular: Cardiovascular: Reports no additional cardiovascular complaints Respiratory: Respiratory: Reports no additional respiratory complaints Gastrointestinal: Gastrointestinal: Reports no additional gastrointestinal complaints Musculoskeletal: Musculoskeletal: Reports no additional musculoskeletal complaints Psychiatric: Psychiatric: Reports no additional psychiatric complaints [facility] Past Medical History Medical History Alcohol abuse Asthma Atrial fibrillation Cardiomyopathy CHF (congestive heart failure) Cocaine abuse Hepatitis C Hypertension MRSA (methicillin resistant staph aureus) culture positive Obstructive sleep apnea Social History Social History Household Members: None Housing: Homeless Do you presently have visiting nurse or other home services: No Patient Tobacco Use Status: Current everyday Tobacco user Tobacco use type: Cigarette Cigarette Packs Per Day: 1 Cigarettes Per Day: 20.0 Smoked in Last 30 Days: Yes e-Cigarette/Vaping Use: Currently Using Frequency of e-Cigarette/Vaping Use: daily Patient Interested in Nicotine Replacement: Yes Patient Given Instructions on How to Stop Smoking: Yes Date Education Initiated: 02/27/23 Use of substances other than those prescribed or required for medical reasons: Yes Substance Use Type: Amphetamines, Crack/Cocaine and IV Drugs Substance Use Frequency: Chronic Longstanding Last Used Substance: Just Prior to Admission Last Used Substance Other:: pressed adderall IVDA Currently Displaying Signs/Symptoms of Drug Intoxication Withdrawal: No Advance Directives: No Advance Directives Information Provided: Yes Do you have thoughts of harming others: None Do you have a plan to hurt others: No Plan Recently lost weight without trying: Unsure Nutrition Risks: No Nutritional Risk service: No Sexual orientation: Straight/Heterosexual Meds Allergies Allergy/AdvReac Type Severity Reaction Status Date / Time cefuroxime AdvReac Unknown Verified 02/27/23 23:26 codeine AdvReac Hives Verified 02/27/23 23:26 shellfish derived AdvReac Anaphylaxis Verified 02/27/23 23:26 Active Medications: Current Medications Acetaminophen (Acetaminophen 325 Mg Tablet) 650 mg PO Q6H PRN PRN Reason: Headache/Pain Mild Scale (1-3) Last Admin: 03/02/23 21:35 Dose: 650 mg Al Hydroxide/Mg Hydroxide (Magnesium Hydrox/Alum Hydrox 30 Ml Oral.Susp) 30 ml PO Q6H PRN PRN Reason: Heartburn/Nausea Albuterol Sulfate (Albuterol Sulfate 90 Mcg 8 Gm Inhaler) 1 puff INHALE Q6H PRN PRN Reason: Wheezing Amiodarone HCl (Amiodarone Hcl 200 Mg Tablet) 200 mg PO DAILY [facility] Last Admin: 03/03/23 11:38 Dose: 200 mg Apixaban (Apixaban 5 Mg Tablet) 5 mg PO BID [facility] Last Admin: 03/03/23 08:58 Dose: 5 mg Aspirin (Aspirin Enteric Coated 81 Mg Tablet.Dr) 81 mg PO DAILY [facility] Last Admin: 03/03/23 08:59 Dose: 81 mg Buprenorphine/Naloxone (Buprenorphine/Naloxone 8/2 Mg Film) 1 film SUBLINGUAL 0900,1300,1800 [facility] Last Admin: 03/03/23 10:24 Dose: Not Given Capsaicin (Capsaicin 0.025% Cream 60 Gm Tube) 1 appl TOPICAL TID PRN; Protocol PRN Reason: Pain, Moderate(Pain Scale 4-6) Last Admin: 03/01/23 11:02 Dose: 1 appl Cariprazine (Cariprazine Hcl 1.5 Mg Capsule) 4.5 mg PO DAILY [facility] Last Admin: 03/03/23 08:56 Dose: 4.5 mg Clonazepam (Clonazepam 0.5 Mg Tablet) 0.5 mg PO BID PRN PRN Reason: anxiety Last Admin: 03/02/23 21:36 Dose: 0.5 mg Diphenhydramine HCl (Diphenhydramine Hcl 25 Mg Capsule) 25 mg PO Q6H PRN PRN Reason: Itching Last Admin: 02/28/23 21:48 Dose: 25 mg Fluticasone/Vilanterol (Fluticasone/Vilanterol 200/25 Blst.W.Dev) 1 puff INHALE RDAILY [facility] Last Admin: 03/03/23 08:56 Dose: 1 puff Hydroxyzine HCl (Hydroxyzine Hcl 25 Mg Tablet) 25 mg PO Q6H PRN PRN Reason: Anxiety Last Admin: 03/01/23 20:57 Dose: 25 mg Sodium Chloride (Ns) 1,000 mls @ 100 mls/hr IVCONT .Q10H [facility] Stop: 03/03/23 20:14 Last Admin: 03/03/23 10:44 Dose: Not Given Linezolid (Linezolid 600 Mg Tablet) 600 mg PO Q12H [facility] Last Admin: 03/03/23 11:38 Dose: 600 mg Magnesium Hydroxide (Milk Of Magnesia 30 Ml Oral.Susp) 30 ml PO DAILY PRN PRN Reason: Constipation Metoprolol Succinate (Metoprolol Succinate Er 50 Mg Tab.Er.24h) 50 mg PO DAILY [facility]; Protocol Last Admin: 03/03/23 08:59 Dose: Not Given Nicotine (Nicotine 21 Mg Patch.Td24) 21 mg TRANSDERMA DAILY [facility] Last Admin: 03/03/23 09:21 Dose: 21 mg Nicotine Polacrilex (Nicotine Polacrilex 2 Mg Gum) 4 mg BUCCAL Q2H PRN PRN Reason: Nicotine Cravings Non-Formulary Medication (Eplerenone) 25 mg PO DAILY [facility] Pt Own (Camphor- (Menthol Lotion)) 1 applic TOPICAL BID PRN PRN Reason: Itching Last Admin: 03/03/23 08:56 Dose: 1 applic Olanzapine (Olanzapine 5 Mg Tablet) 5 mg PO TID PRN PRN Reason: agitation Omeprazole (Omeprazole 20 Mg Capsule.Dr) 20 mg PO DAILY@1630 [facility] Last Admin: 03/02/23 17:33 Dose: 20 mg Oxycodone HCl (Oxycodone Hcl Immed Release 5 Mg Tablet) 5 mg PO Q6H PRN PRN Reason: Pain, Severe Last Admin: 03/03/23 06:58 Dose: 5 mg Prazosin HCl (Prazosin Hcl 1 Mg Capsule) 4 mg PO BEDTIME [facility]; Protocol Last Admin: 03/02/23 21:25 Dose: 4 mg Pregabalin (Pregabalin 150 Mg Capsule) 150 mg PO 0900,1300,1800 [facility] Last Admin: 03/03/23 10:24 Dose: Not Given Tiotropium [place] (Tiotropium [place] 2.5 Mcg Inhaler) 2 puff INHALE RDAILY [facility] Last Admin: 03/03/23 08:56 Dose: 2 puff Trazodone HCl (Trazodone Hcl 50 Mg Tablet) 50 mg PO BEDTIME MRX1 PRN PRN Reason: Insomnia Home Medications Medication Instructions Recorded Confirmed Last Taken Type acetaminophen 1,000 mg PO Q6H PRN Pain 02/27/23 02/28/23 Unknown History albuterol sulfate 90 mcg/actuation 1 puff inhalation Q6H PRN Wheezing 02/27/23 02/28/23 Unknown History aerosol inhaler (Ventolin HFA) amiodarone 200 mg tablet 200 mg PO DAILY 02/27/23 02/27/23 Unknown History apixaban 5 mg tablet (Eliquis) 5 mg PO BID 02/27/23 02/27/23 Unknown History aspirin 81 mg tablet,delayed 81 mg PO DAILY 02/27/23 02/27/23 Unknown History release budesonide-formoterol HFA 160 2 puff inhalation BID 02/27/23 02/28/23 Unknown History mcg-4.5 mcg/actuation aerosol inhaler (Symbicort) buprenorphine 8 mg-naloxone 2 mg 8 mg sublingual TID 02/27/23 02/28/23 Unknown History sublingual film (Suboxone) camphor-menthol 1 applic topical BID PRN Itching 02/27/23 02/28/23 Unknown History cariprazine 4.5 mg capsule 4.5 mg PO DAILY 02/27/23 02/28/23 Unknown History (Vraylar) clonazepam 0.5 mg tablet 0.5 mg PO BID PRN anxiety 02/27/23 02/27/23 Unknown History eplerenone 25 mg tablet 25 mg PO DAILY 02/27/23 02/27/23 Unknown History furosemide 20 mg PO DAILY 02/27/23 02/28/23 Unknown History ibuprofen 600 mg tablet 400 mg PO TIDWM 02/27/23 02/27/23 Unknown History linezolid 600 mg PO Q12H 02/27/23 02/28/23 Unknown History metoprolol succinate 50 mg 50 mg PO DAILY 02/27/23 02/27/23 Unknown History tablet,extended release 24 hr nicotine 21 mg/24 hr daily 1 patch topical DAILY 02/27/23 02/27/23 Unknown History transdermal patch oxycodone 5 mg PO Q6H PRN Pain, Severe 02/27/23 02/28/23 Unknown History pantoprazole 40 mg PO BEDTIME 02/27/23 02/28/23 Unknown History prazosin 2 mg capsule 4 mg PO BEDTIME 02/27/23 02/27/23 Unknown History pregabalin 150 mg capsule 150 mg PO TID 02/27/23 02/27/23 Unknown History sacubitril 24 mg-valsartan 26 mg 1 tab PO BID 02/27/23 02/27/23 Unknown History tablet (Entresto) tiotropium bromide 2.5 2 puff inhalation DAILY 02/27/23 02/27/23 Unknown History mcg/actuation mist for inhalation (Spiriva Respimat) Physical Exam Vital Signs: Vital Signs: Last Vital Signs Temp 98.4 F 03/03/23 08:50 Pulse 61 03/03/23 10:30 Resp 16 03/03/23 08:50 BP 95/57 L 03/03/23 10:30 Pulse Ox 98 03/03/23 08:50 O2 Del Method Room Air 03/03/23 08:50 BMI result Body Mass Index 29.0 Const: General: cooperative, comfortable, alert and awake Nutritional Appearance: well nourished and overweight Orientation/consciousness: patient oriented x3 HEENT: Head: Yes normocephalic and Yes atraumatic Neck: Neck: Yes trachea midline, Yes supple and Yes no JVD Resp: Effort & Inspection: normal respiratory effort Auscultation: clear to auscultation bilaterally Cardio: Jugular venous distension: no JVD Palpation: normal PMI Rate: regular rate Rhythm: regular rhythm Heart sounds: S1 normal heart sound present, S2 normal heart sound present, no click, no gallops, no murmurs and no rubs GI: Auscultation: normal bowel sounds Neuro: General: patient oriented x3 and no focal motor deficits Extrem: General: Yes no clubbing, cyanosis or edema Objective Labs and Meds 03/03/23 10:36 03/03/23 10:36 Lab results: Laboratory Results - last 24 hr 03/03/23 03/03/23 10:36 10:36 WBC 6.5 RBC 3.76 L Hgb 11.1 L Hct 34.2 L MCV 91.0 MCH 29.5 MCHC 32.5 RDW 13.0 Plt Count 225 MPV 10.7 Absolute Nucleated RBC 0.000 Nucleated RBC % (auto) 0.0 Sodium 133 L Potassium 5.3 H Chloride 100 Carbon Dioxide 22 Anion Gap 16 BUN 33 H Creatinine 2.04 H Estim Creat Clear Calc 50.0 Estimated GFR 33 Random Glucose 96 Calcium 9.5 Assessment and Plan (1) Low blood pressure: Status: Acute Low blood pressure in this middle-aged man with prior history of severe cardiomyopathy and atrial fibrillation. Currently maintaining sinus rhythm. Patient's echocardiogram yesterday shows normalized LV ejection fraction. This is probably due to aggressive neurohormonal modulation. He is on appropriate heart failure medication as outpatient but may be over diuresed at this point time. Noted elevated creatinine mildly elevated potassium which could represent acute kidney injury on top of his chronic kidney disease. Do not have any old labs. For now given his low blood pressure with gently hydrate him. He is currently refusing NIV. He is drinking adequate amount of oral fluids. Can hold all his vasoactive medications and then introduced slowly as his renal function improves. Continue amiodarone to maintain rhythm as this does not affect the blood pressure. Continue Eliquis therapy. I do not see any clear indication for aspirin therapy. He is on prazosin which is a potent alphaalpha antagonist causing high likelihood of orthostatic hypotension not clearly indicated for patient with cardiomyopathy. Would therefore try to discontinue this in the long run. Once the blood pressure improves and renal function improves can gradually reintroduce his heart failure medications 1 x 1. Will sign of the case. Time Spent With Patient Time: Total time managing care of this patient today ____ minutes. Procedures Date of Service Date of Service: 03/03/23
[2023-03-03] MEDS: Buprenorphine/Naloxone 8/2 mg FILM 1 FILM SUBLINGUAL (12:33)
[2023-03-03] MEDS: Pregabalin 150 MG CAPSULE PO (12:33)
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
== END 2023-03-03 17:35 | disposition short-term general hospital (02) | DRG 754 ==
PROVIDERS: Hospitalist; Admitting Provider Psychiatry & Neurology Psychiatry; PCP Internal Medicine; Visit Provider Psychiatry & Neurology Psychiatry
DX: F32.9 Major depressive disorder, single episode, unspecified (principal); I42.9 Cardiomyopathy, unspecified; F11.20 Opioid dependence, uncomplicated; F17.210 Nicotine dependence, cigarettes, uncomplicated; J44.9 Chronic obstructive pulmonary disease, unspecified; B19.20 Unspecified viral hepatitis C without hepatic coma; F10.10 Alcohol abuse, uncomplicated; E66.9 Obesity, unspecified; Z68.32 Body mass index [BMI] 32.0-32.9, adult; L97.419 Non-pressure chronic ulcer of right heel and midfoot with unspecified severity; B95.62 Methicillin resistant Staphylococcus aureus infection as the cause of diseases classified elsewhere; G47.33 Obstructive sleep apnea (adult) (pediatric); Z71.6 Tobacco abuse counseling; Z79.01 Long term (current) use of anticoagulants; Z79.51 Long term (current) use of inhaled steroids; Z79.899 Other long term (current) drug therapy
CPT/HCPCS: 36415; 80048; 85027; 87070; 87077; 87186; 87205; 93306; 93923; 93925; 94660

== ENCOUNTER 2023-02-27 19:07 | Outpatient (BNV) | payer OTHER, SELFPAY | END 2023-03-02 07:00 | PROVIDERS: Admitting Provider Psychiatry & Neurology Psychiatry; PCP Internal Medicine; Visit Provider Internal Medicine Cardiovascular Disease | DX: I42.9 Cardiomyopathy, unspecified (principal) | CPT/HCPCS: 93306 ==

== ENCOUNTER → 2023-02-27 19:07 | Outpatient (BNV) | payer OTHER, SELFPAY | PROVIDERS: Admitting Provider Psychiatry & Neurology Psychiatry; PCP Internal Medicine; Visit Provider Psychiatry & Neurology Psychiatry | DX: F33.2 Major depressive disorder, recurrent severe without psychotic features (principal) | CPT/HCPCS: 90792; 99231; 99239; 99499 ==

== ENCOUNTER → 2023-02-27 19:07 | Outpatient (BNV) | payer OTHER, SELFPAY | PROVIDERS: Admitting Provider Psychiatry & Neurology Psychiatry; PCP Internal Medicine; Visit Provider Nurse Practitioner Acute Care | DX: Z02.2 Encounter for examination for admission to residential institution (principal) | CPT/HCPCS: 99429 ==

== ENCOUNTER → 2023-02-27 19:07 | Outpatient (BNV) | payer OTHER, SELFPAY | PROVIDERS: Admitting Provider Psychiatry & Neurology Psychiatry; PCP Internal Medicine; Visit Provider Internal Medicine Cardiovascular Disease | DX: I95.9 Hypotension, unspecified (principal) | CPT/HCPCS: 99222 ==

== ENCOUNTER 2023-03-03 16:03 | Observation (INO) | payer OTHER, SELFPAY ==
--- NOTE | 2023-03-03 16:09 | P.HPHOSP_ITS ---
History of Present Illness Date of Service: 03/03/23 Attending physician on admission: Yannick Cutler Chief Complaint: hypotension 63-year-old male with history of moderate persistent asthma, history alcohol abuse, paroxysmal atrial fibrillation anticoagulated with Eliquis, congestive heart failure, orthostatic hypotension, history of cocaine abuse, history of hepatitis-C treated, hypertension, obstructive sleep apnea, and chronic wound of the right foot positive for MRSA on culture previously admitted to Adult Psychiatry being transferred to the medical floors for further management of hypotension/low blood pressures. Patient was previously admitted to Psychiatry for depression and suicidal statement but has been cleared psychiatrically and currently denies any SI/HI. Throughout his stay, blood pressure is soft and this morning had 2 episodes of hypotension and 87/53 and 72/43. He has also had episodes of positional lightheadedness found to have orthostatic hyotension, that last longer this morning about 1 minute. The patient did endorse that he had not been drinking much water. He is also on multiple antihypertensive agents in reports compliance with these outpatient. He does follow with follow up specialist back home in [facility]. He was seen [facility] who feels the patient is on an appropriate outpatient medication regimen but may be over diuresed at this time. He does have slightly elevated creatinine at 2.04, baseline around 1.0, and potassium was slightly elevated at 5.3 but was noted to be moderately hemolyzed. He also has a mild hyponatremia of 133. Recommending admission for gentle hydration, holding all vasoactive medications and reintroducing as renal function improves. Continue amiodarone as well as eliquis. Review of Systems Review of Systems: General: No fevers, malaise, unintentional weight loss HEENT: No blurred vision, diplopia. No sore throat, nasal congestion, rhinorrhea, sinus pain, ear pain Cardiovascular: No chest pain, palpitations, or leg edema Respiratory: No shortness of breath, wheezing, cough GI: No abdominal pain, nausea, vomiting, diarrhea, constipation, melena, hematochezia : No dysuria, hematuria, increased urinary frequency, decreased urinary output MSK: No myalgia, back pain Neuro: No headaches, weakness, paresthesias Skin: No rashes or lesions PMFSH Medical History Alcohol abuse Asthma Atrial fibrillation Cardiomyopathy CHF (congestive heart failure) Cocaine abuse Hepatitis C Hypertension MRSA (methicillin resistant staph aureus) culture positive Obstructive sleep apnea Social History Household Members: None Housing: Homeless Do you presently have visiting nurse or other home services: No Patient Tobacco Use Status: Current everyday Tobacco user Tobacco use type: Cigarette Cigarette Packs Per Day: 1 Cigarettes Per Day: 20.0 e-Cigarette/Vaping Use: Currently Using Substance Use Type: Amphetamines, Crack/Cocaine and IV Drugs service: No Sexual orientation: Straight/Heterosexual Meds Allergies Allergy/AdvReac Type Severity Reaction Status Date / Time cefuroxime AdvReac Unknown Verified 02/27/23 23:26 codeine AdvReac Hives Verified 02/27/23 23:26 shellfish derived AdvReac Anaphylaxis Verified 02/27/23 23:26 Active Medications: Current Medications Acetaminophen (Acetaminophen 325 Mg Tablet) 650 mg PO Q6H PRN PRN Reason: Pain, Mild (Pain Scale 1-3) Docusate Sodium (Docusate Sodium 100 Mg Capsule) 100 mg PO DAILY PRN PRN Reason: Constipation Ondansetron HCl (Ondansetron Hcl 4 Mg/2 Ml Vial) 4 mg IVPUSH Q8H PRN PRN Reason: Nausea and Vomiting Home Medications Medication Instructions Recorded Confirmed Last Taken Type acetaminophen 1,000 mg PO Q6H PRN Pain 02/27/23 02/28/23 Unknown History albuterol sulfate 90 mcg/actuation 1 puff inhalation Q6H PRN Wheezing 02/27/23 02/28/23 Unknown History aerosol inhaler (Ventolin HFA) amiodarone 200 mg tablet 200 mg PO DAILY 02/27/23 02/27/23 03/03/23 History apixaban 5 mg tablet (Eliquis) 5 mg PO BID 02/27/23 02/27/23 03/03/23 History aspirin 81 mg tablet,delayed 81 mg PO DAILY 02/27/23 02/27/23 03/03/23 History release budesonide-formoterol HFA 160 2 puff inhalation BID 02/27/23 02/28/23 03/03/23 History mcg-4.5 mcg/actuation aerosol inhaler (Symbicort) buprenorphine 8 mg-naloxone 2 mg 8 mg sublingual TID 02/27/23 02/28/23 03/03/23 History sublingual film (Suboxone) camphor-menthol 1 applic topical BID PRN Itching 02/27/23 02/28/23 Unknown History cariprazine 4.5 mg capsule 4.5 mg PO DAILY 02/27/23 02/28/23 03/03/23 History (Vraylar) clonazepam 0.5 mg tablet 0.5 mg PO BID PRN anxiety 02/27/23 02/27/23 Unknown History eplerenone 25 mg tablet 25 mg PO DAILY 02/27/23 02/27/23 03/03/23 History ibuprofen 600 mg tablet 400 mg PO TIDWM 02/27/23 02/27/23 03/03/23 History linezolid 600 mg PO Q12H 02/27/23 02/28/23 03/03/23 History metoprolol succinate 50 mg 50 mg PO DAILY 02/27/23 02/27/23 03/03/23 History tablet,extended release 24 hr nicotine 21 mg/24 hr daily 1 patch topical DAILY 02/27/23 02/27/23 03/03/23 History transdermal patch pantoprazole 40 mg PO BEDTIME 02/27/23 02/28/23 03/03/23 History prazosin 2 mg capsule 4 mg PO BEDTIME 02/27/23 02/27/23 03/03/23 History pregabalin 150 mg capsule 150 mg PO TID 02/27/23 02/27/23 03/03/23 History sacubitril 24 mg-valsartan 26 mg 1 tab PO BID 02/27/23 02/27/23 03/03/23 History tablet (Entresto) tiotropium bromide 2.5 2 puff inhalation DAILY 02/27/23 02/27/23 03/03/23 History mcg/actuation mist for inhalation (Spiriva Respimat) furosemide 20 mg tablet 20 mg PO DAILY 03/03/23 03/03/23 03/03/23 History oxycodone 5 mg tablet 5 mg PO Q6H PRN Pain, Severe 03/03/23 03/03/23 Unknown History Physical Exam Vital Signs and Narrative: Constitutional - Awake and Alert, No apparent distress Eyes - PERRLA, EOMI Cardiovascular - S1S2, RRR, No edema Respiratory - Normal lung expansion, Normal respiratory effort, No respiratory distress, CTA bilaterally Extremities - no calf tenderness bilaterally, no swelling Musculoskeletal - Normal inspection, normal ROM Skin - Warm/Dry Neurological - Alert & oriented x3 Psychological - Appropriate affect, no si/hi Assessment and Plan (1) Low blood pressure: Status: Acute Plan 63-year-old male with history of moderate persistent asthma, history alcohol abuse, paroxysmal atrial fibrillation anticoagulated with Eliquis, congestive heart failure, orthostatic hypotension, history of cocaine abuse, history of hepatitis-C treated, hypertension, obstructive sleep apnea, and chronic wound of the right foot positive for MRSA on 02/28 on linezolid. 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 -hold furosemide for now. Resume as above # opioid dependence -continue Suboxone #Depression -no si/hi -continue home meds DVT prophylaxis-on Eliquis Full code Time Spent With Patient Time: Total time managing care of this patient today ____ minutes. Quality Stroke Does the patient have a stroke diagnosis?: No VTE Prior VTE?: No VTE Risk Level:: Medical - moderate - high VTE Device Contraindication: Treatment Not Indicated VTE Drug Contraindication: N/A - Med Ordered
--- NOTE | 2023-03-03 16:46 | PHA.MEDREC ---
Pharmacy Consult ? Medication Reconciliation Pharmacy has completed the medication reconciliation. PT CAME FROM [facility] AND ALL MEDS REMAINED THE SAME PER PROVIDER, USED [facility] HOME MED LIST
[2023-03-03 18:13] VITALS: BP 90/54; PULSE 68; RESP 20; TEMP 36.7; O2SAT 98
[2023-03-03 18:30] VITALS: BMI 29.8
[2023-03-03 19:04] VITALS: PULSE 89; RESP 18; TEMP 37; O2SAT 98
[2023-03-03] MEDS: 0.9 % Sodium Chloride 1,000 ML 999 ML IV (19:23)
[2023-03-03 20:14] VITALS: BP 100/64
[2023-03-03 20:44] VITALS: BP 114/59
[2023-03-03] MEDS: Apixaban 5 MG TABLET PO (21:11)
[2023-03-03] MEDS: Linezolid 600 MG TABLET PO (21:12)
[2023-03-03] MEDS: Pregabalin 150 MG CAPSULE PO (21:17)
[2023-03-03] MEDS: Buprenorphine/Naloxone 8/2 mg FILM 1 FILM SUBLINGUAL (21:18)
--- NOTE | 2023-03-03 23:58 | P.CNID_ITS ---
History of Present Illness Data of Consult Service Date: 03/03/23 Requesting physician: Jaydon Nowak Primary Care Provider: Unknown Physician HPI Reason for consult: right foot discomfort He has right foot cellulitis slight and clean opening after foot injury three weeks ago. He has no fever or chills. He has been on Zyvox since 02/28. Culture shows MRSA superficial swab. Review of Systems Review of Systems: Yes all other systems are reviewed and are negative [facility] Past Medical History Medical History (Updated 03/04/23 @ 00:02 by Miriam Ayala MD) Alcohol abuse Asthma Atrial fibrillation Cardiomyopathy Cellulitis of foot CHF (congestive heart failure) Cocaine abuse Hepatitis C Hypertension MRSA (methicillin resistant staph aureus) culture positive Obstructive sleep apnea Social History Social History Household Members: Friend(s) Housing: House Do you presently have visiting nurse or other home services: No Patient Tobacco Use Status: Current everyday Tobacco user Tobacco use type: Cigarette Cigarette Packs Per Day: 1 Cigarettes Per Day: 20.0 e-Cigarette/Vaping Use: Currently Using Patient Interested in Nicotine Replacement: Yes Use of substances other than those prescribed or required for medical reasons: No Substance Use Type: Amphetamines, Crack/Cocaine and IV Drugs Currently Displaying Signs/Symptoms of Drug Intoxication Withdrawal: No Have you been hit, kicked, punched, or otherwise hurt by someone within the past year? If so, by whom?: No Do you feel safe in your current relationship?: Yes Is there a partner from a previous relationship who is making you feel unsafe now?: No Are you made to feel afraid or neglected: No Advance Directives: No Advance Directives Information Provided: No Do you have thoughts of harming others: None Do you have a plan to hurt others: No Plan Recently lost weight without trying: No Nutrition Risks: No Nutritional Risk Poor oral hygiene: No service: No Sexual orientation: Straight/Heterosexual Meds Allergies Allergy/AdvReac Type Severity Reaction Status Date / Time cefuroxime AdvReac Unknown Verified 02/27/23 23:26 codeine AdvReac Hives Verified 02/27/23 23:26 shellfish derived AdvReac Anaphylaxis Verified 02/27/23 23:26 Active Medications: Current Medications Acetaminophen (Acetaminophen 325 Mg Tablet) 650 mg PO Q6H PRN PRN Reason: Pain, Mild (Pain Scale 1-3) Al Hydroxide/Mg Hydroxide (Magnesium Hydrox/Alum Hydrox 30 Ml Oral.Susp) 30 ml PO Q6H PRN PRN Reason: Heartburn/Nausea Albuterol Sulfate (Albuterol Sulfate 90 Mcg 8 Gm Inhaler) 1 puff INHALE Q6H PRN PRN Reason: Wheezing Amiodarone HCl (Amiodarone Hcl 200 Mg Tablet) 200 mg PO DAILY [facility] Apixaban (Apixaban 5 Mg Tablet) 5 mg PO BID [facility] Last Admin: 03/03/23 21:11 Dose: 5 mg Aspirin (Aspirin Enteric Coated 81 Mg Tablet.Dr) 81 mg PO DAILY [facility] Buprenorphine/Naloxone (Buprenorphine/Naloxone 8/2 Mg Film) 1 film SUBLINGUAL 0900,1300,1800 [facility] Last Admin: 03/03/23 21:18 Dose: 1 film Capsaicin (Capsaicin 0.025% Cream 60 Gm Tube) 1 appl TOPICAL TID PRN; Protocol PRN Reason: Pain, Moderate(Pain Scale 4-6) Cariprazine (Cariprazine Hcl 1.5 Mg Capsule) 4.5 mg PO DAILY [facility] Clonazepam (Clonazepam 0.5 Mg Tablet) 0.5 mg PO BID PRN PRN Reason: anxiety Diphenhydramine HCl (Diphenhydramine Hcl 25 Mg Capsule) 25 mg PO Q6H PRN PRN Reason: Itching Docusate Sodium (Docusate Sodium 100 Mg Capsule) 100 mg PO DAILY PRN PRN Reason: Constipation Fluticasone/Vilanterol (Fluticasone/Vilanterol 200/25 Blst.W.Dev) 1 puff INHALE RDAILY [facility] Hydroxyzine HCl (Hydroxyzine Hcl 25 Mg Tablet) 25 mg PO Q6H PRN PRN Reason: Anxiety Linezolid (Linezolid 600 Mg Tablet) 600 mg PO Q12H [facility] Last Admin: 03/03/23 21:12 Dose: 600 mg Magnesium Hydroxide (Milk Of Magnesia 30 Ml Oral.Susp) 30 ml PO DAILY PRN PRN Reason: Constipation Metoprolol Succinate (Metoprolol Succinate Er 50 Mg Tab.Er.24h) 50 mg PO DAILY [facility]; Protocol Nicotine (Nicotine 21 Mg Patch.Td24) 21 mg TRANSDERMA DAILY [facility] Nicotine Polacrilex (Nicotine Polacrilex 2 Mg Gum) 4 mg BUCCAL Q2H PRN PRN Reason: Nicotine Cravings Non-Formulary Medication (Camphor-Menthol) 1 applic TOPICAL BID PRN PRN Reason: shoulder pain Olanzapine (Olanzapine 5 Mg Tablet) 5 mg PO TID PRN PRN Reason: agitation Omeprazole (Omeprazole 20 Mg Capsule.Dr) 20 mg PO DAILY@1630 VIDAL Ondansetron HCl (Ondansetron Hcl 4 Mg/2 Ml Vial) 4 mg IVPUSH Q8H PRN PRN Reason: Nausea and Vomiting Pregabalin (Pregabalin 150 Mg Capsule) 150 mg PO 0900,1300,1800 [facility] Last Admin: 03/03/23 21:17 Dose: 150 mg Tiotropium Deary (Tiotropium Deary 2.5 Mcg Inhaler) 2 puff INHALE RDAILY [facility] Trazodone HCl (Trazodone Hcl 50 Mg Tablet) 50 mg PO BEDTIME MRX1 PRN PRN Reason: Insomnia Physical Exam Vital Signs: Vital Signs: Last Vital Signs Temp 98.6 F 03/03/23 19:04 Pulse 89 03/03/23 19:04 Resp 18 03/03/23 19:04 BP 114/59 L 03/03/23 20:44 Pulse Ox 98 03/03/23 19:04 O2 Del Method Room Air 03/03/23 19:04 BMI result Body Mass Index 29.8 Const: General: cooperative HEENT: Head: Yes normal to inspection Face and sinus: Yes normal facial exam Mouth: Normal oral and palatal mucosa present Teeth and gingiva: dentition normal Eyes: General: appearance normal, both eyes and all related structures Pupils: Equal, round and reactive pupils present Resp: Effort & Inspection: normal respiratory effort Cardio: Rate: regular rate Rhythm: regular rhythm GI: Palpation (GI): Soft to palpation and nontender : General: Yes no CVA tenderness Back/Spine/Pelvis: Back: no CVA tenderness Skin: General skin exam: no rashes or lesions noted Neuro: General: moves all extremities Cranial nerves: Yes Equal, round and reactive pupils present Extrem: Other: mild erythema resolving clean wound dorsal foot Psych: Appearance: grossly normal Assessment and Plan (1) Cellulitis of foot: Status: Acute mild erythema resolving Po linezolid seven days. Time Spent With Patient Time: Total time managing care of this patient today ____ minutes.
[2023-03-04] VITALS (10 sets, daily range): BP systolic 84–116; BP diastolic 51–70; PULSE 55–76; RESP 14–21; TEMP 36.1–37; O2SAT 95–98
[2023-03-04 07:32] LABS: MANUAL DIFF FLAG NO
[2023-03-04 07:36] LABS: Basophils Absolute Auto 0.1 X10*3/uL (0.0-0.2); Basophils Percent Auto 1.4 % (0-2); Eosinophils Absolute Auto 0.5 X10*3/uL (0.0-0.4); Eosinophils Percent Auto 8.9 % (0-4); Hematocrit 33.5 % (42.0-52.0); Hemoglobin 11.2 g/dl (14.0-18.0); Imm Gran Abs Auto 0.02 X10*3/uL (0.00-0.03); Imm Gran Pct Auto 0.4 % (0.0-0.4); Lymphocytes Absolute Auto 1.5 X10*3/uL (1.2-4.9); Lymphocytes Percent Auto 30.5 % (20-40); Mean Corpuscular HGB Conc 33.4 g/dl (31.0-36.0); Mean Corpuscular Hemoglobin 29.9 pg (27.0-33.0); Mean Corpuscular Volume 89.3 fL (80.0-98.0); Mean Platelet Volume 10.9 fL (9.4-12.4); Monocytes Absolute Auto 0.6 X10*3/uL (0.1-1.2); Monocytes Percent Auto 11.1 % (2-11); Neutrophils Absolute Auto 2.4 x10*3/uL (2.0-8.3); Neutrophils Percent Auto 47.7 % (45-73); Platelet Count 211 X10*3/uL (160-400); Red Blood Count 3.75 X10*6/uL (4.60-5.80); Red Cell Distribution Width 12.9 % (11.0-16.0); White Blood Count 5.1 X10*3/uL (4.8-10.8)
[2023-03-04] MEDS: Fluticasone/Vilanterol 200/25 BLST.W.DEV 1 PUFF INHALE (07:38)
[2023-03-04 07:49] LABS: Anion Gap 14 (12-20); Blood Urea Nitrogen 28 mg/dL (9-16); Calcium 9.7 mg/dL (8.4-10.2); Carbon Dioxide 25 mmol/L (22-29); Chloride 103 mmol/L (96-108); Creatinine Clr Calc Pharmacy 66.4; Estimated Glomerular Filt Rate 46; Glucose Random 103 mg/dL (60-115); Potassium 4.5 mmol/L (3.3-5.1); Sodium 137 mmol/L (135-145)
--- NOTE | 2023-03-04 08:40 | MHC.CM.PN ---
CM met with Patient at bedside and addressed MCCAULEY with him, providing Patient with the original and placing a copy on the chart. Patient has been living with a Friend in [facility] and he is hopeful that he will be able to return there when dc from the hospital. [place] [facility] [place] [facility] but appears to have been cleared (No SI/HI); home vs home with new VNA and resume Suboxone from [facility] in [place] is the tentative plan. CM has initiated and will follow for dc planning. Patient states that his Friend/Tom is his HCP but he was unable to provide Tom's contact information. PCP is Dr. Junior Chin in [facility].
[2023-03-04] MEDS: Cariprazine HCl 1.5 MG CAPSULE 4.5 MG PO (08:57)
[2023-03-04] MEDS: Apixaban 5 MG TABLET PO ×2 (08:57→20:23)
[2023-03-04] MEDS: Linezolid 600 MG TABLET PO ×2 (08:57→20:23)
[2023-03-04] MEDS: Aspirin Enteric Coated 81 MG TABLET.DR PO (08:57)
[2023-03-04] MEDS: Pregabalin 150 MG CAPSULE PO ×3 (08:57→17:30)
[2023-03-04] MEDS: Metoprolol Succinate ER 50 MG TAB.ER.24H PO (08:58)
[2023-03-04] MEDS: Amiodarone HCL 200 MG TABLET PO (08:58)
[2023-03-04] MEDS: Nicotine 21 MG PATCH.TD24 TRANSDERMA (08:58)
[2023-03-04] MEDS: Buprenorphine/Naloxone 8/2 mg FILM 1 FILM SUBLINGUAL ×3 (08:58→17:30)
--- NOTE | 2023-03-04 09:10 | P.PNCA_ITS ---
Subjective Subjective Date of Service: 03/04/23 Principal diagnosis: Low blood pressure Interval history: Patient not having any lightheadedness at this point in time. His blood pressure has improved. Ortho vitals just noticed still having standing low blood pressure. Patient denies any chest pain or shortness of breath. Review of Systems Review of Systems Yes all other systems are reviewed and are negative Physical Exam Vital Signs: Last Vital Signs Temp 98.6 F 03/04/23 07:09 Pulse 76 03/04/23 09:04 Resp 18 03/04/23 07:41 BP 84/51 L 03/04/23 09:04 Pulse Ox 95 03/04/23 07:09 O2 Del Method Room Air 03/04/23 07:09 BMI result Body Mass Index 29.8 Const General: cooperative, comfortable, alert and awake Nutritional Appearance: well nourished and overweight Orientation/consciousness: patient oriented x3 HEENT Head: Yes normocephalic and Yes atraumatic Neck Neck: Yes trachea midline, Yes supple and Yes no JVD Resp Effort & Inspection: normal respiratory effort Auscultation: clear to auscultation bilaterally Cardio Jugular venous distension: no JVD Palpation: normal PMI Rate: regular rate Rhythm: regular rhythm Heart sounds: S1 normal heart sound present, S2 normal heart sound present, no click, no gallops, no murmurs and no rubs GI Auscultation: normal bowel sounds Neuro General: patient oriented x3 and no focal motor deficits Extrem General: Yes no clubbing, cyanosis or edema Objective Labs and Meds 03/04/23 07:02 03/04/23 07:02 Lab results: Laboratory Results - last 24 hr 03/04/23 03/04/23 07:02 07:02 WBC 5.1 RBC 3.75 L Hgb 11.2 L Hct 33.5 L MCV 89.3 MCH 29.9 MCHC 33.4 RDW 12.9 Plt Count 211 MPV 10.9 Immature Gran % (Auto) 0.4 Neut % (Auto) 47.7 Lymph % (Auto) 30.5 [place] % (Auto) 11.1 H Eos % (Auto) 8.9 H Baso % (Auto) 1.4 Lymph # (Auto) 1.5 [place] # (Auto) 0.6 Eos # (Auto) 0.5 H Baso # (Auto) 0.1 Abs Immat Gran (auto) 0.02 Absolute Neuts (auto) 2.4 Absolute Nucleated RBC 0.000 Nucleated RBC % (auto) 0.0 Sodium 137 Potassium 4.5 Chloride 103 Carbon Dioxide 25 Anion Gap 14 BUN 28 H Creatinine 1.55 H Estim Creat Clear Calc 66.4 Estimated GFR 46 Random Glucose 103 Calcium 9.7 Progress Note: A&P Assessment and plan (1) Low blood pressure: Status: Acute Assessment and Plan: Patient persistent orthostasis. Continue hydration, 1 L of IV normal saline. Continue watch for signs of heart failure. Hold off on any vasoactive medicines at this point time. I would definitely avoid alpha blockers at this point in time. (2) History of cardiomyopathy: Status: Acute Assessment and Plan: Prior history of heart failure as well as atrial fibrillation with normalized LV systolic function on recent echocardiogram done here. Hold off on neurohormonal modulation at this point time. Wants orthostasis has improved, can slowly reintroduce his neurohormonal modulation 1 medication at a time. Continue treat underlying infection aggressively. Continue amiodarone and Eliquis. Will sign of the case at this point in time. Thank you for allowing me to partake in his care Time Spent With Patient Time: Total time managing care of this patient today ____ minutes. Progress Note: Quality Stroke Does the patient have a stroke diagnosis?: No Procedures Date of Service Date of Service: 03/04/23
--- NOTE | 2023-03-04 11:42 | P.PNIM_ITS ---
Subjective Subjective Date of Service: 03/04/23 Interval History: Complaining of tiredness since was up all night due to urinary frequency has been drinking water, and had a Liter of IV fluids, complaining of dizziness and lightheadedness when stood up, denies chest pain, no shortness of breath, no PND, no orthopnea no palpitation shins no fevers, no chills tolerating diet with no nausea no vomiting no abdominal pain. Review of Systems All other system reviewed and negative Physical Exam Vital Signs: Vital Signs: Last Vital Signs Temp 98.5 F 03/04/23 10:56 Pulse 66 03/04/23 10:56 Resp 20 03/04/23 10:56 BP 99/55 L 03/04/23 10:56 Pulse Ox 96 03/04/23 10:56 O2 Del Method Room Air 03/04/23 10:56 BMI result Body Mass Index 29.8 Const: Other: General awake alert x3, resting comfortably in no acute distress. Neck supple no JVD. CVS regular rate rhythm, Respiratory lungs clear to auscultation, no respiratory distress, no wheeze, no rhonchi. Gastrointestinal abdomen soft, nontender, bowel sounds audible, no guarding , no rigidity. Extremities no edema. Neuro nonfocal Skin small wound dorsum of right foot no drainage, no surrounding erythema, mild eschar Objective Data Active Medications Acetaminophen (Acetaminophen 325 Mg Tablet) 650 mg PO Q6H PRN PRN Reason: Pain, Mild (Pain Scale 1-3) Al Hydroxide/Mg Hydroxide (Magnesium Hydrox/Alum Hydrox 30 Ml Oral.Susp) 30 ml PO Q6H PRN PRN Reason: Heartburn/Nausea Albuterol Sulfate (Albuterol Sulfate 90 Mcg 8 Gm Inhaler) 1 puff INHALE Q6H PRN PRN Reason: Wheezing Amiodarone HCl (Amiodarone Hcl 200 Mg Tablet) 200 mg PO DAILY [facility] Last Admin: 03/04/23 08:58 Dose: 200 mg Documented By: DARRYL Apixaban (Apixaban 5 Mg Tablet) 5 mg PO BID [facility] Last Admin: 03/04/23 08:57 Dose: 5 mg Documented By: DARRYL Aspirin (Aspirin Enteric Coated 81 Mg Tablet.) 81 mg PO DAILY [facility] Last Admin: 03/04/23 08:57 Dose: 81 mg Documented By: DARRYL Buprenorphine/Naloxone (Buprenorphine/Naloxone 8/2 Mg Film) 1 film SUBLINGUAL 0900,1300,1800 [facility] Last Admin: 03/04/23 08:58 Dose: 1 film Documented By: DARRYL Capsaicin (Capsaicin 0.025% Cream 60 Gm Tube) 1 appl TOPICAL TID PRN; Protocol PRN Reason: Pain, Moderate(Pain Scale 4-6) Cariprazine (Cariprazine Hcl 1.5 Mg Capsule) 4.5 mg PO DAILY [facility] Last Admin: 03/04/23 08:57 Dose: 4.5 mg Documented By: DARRYL Clonazepam (Clonazepam 0.5 Mg Tablet) 0.5 mg PO BID PRN PRN Reason: anxiety Diphenhydramine HCl (Diphenhydramine Hcl 25 Mg Capsule) 25 mg PO Q6H PRN PRN Reason: Itching Docusate Sodium (Docusate Sodium 100 Mg Capsule) 100 mg PO DAILY PRN PRN Reason: Constipation Fluticasone/Vilanterol (Fluticasone/Vilanterol 200/25 Blst.W.Dev) 1 puff INHALE RDAILY [facility] Last Admin: 03/04/23 07:38 Dose: 1 puff Documented By: OCHOAFTOswaldo Hydroxyzine HCl (Hydroxyzine Hcl 25 Mg Tablet) 25 mg PO Q6H PRN PRN Reason: Anxiety Linezolid (Linezolid 600 Mg Tablet) 600 mg PO Q12H [facility] Last Admin: 03/04/23 08:57 Dose: 600 mg Documented By: DARRYL Magnesium Hydroxide (Milk Of Magnesia 30 Ml Oral.Susp) 30 ml PO DAILY PRN PRN Reason: Constipation Metoprolol Succinate (Metoprolol Succinate Er 50 Mg Tab.Er.24h) 50 mg PO DAILY [facility]; Protocol Last Admin: 03/04/23 08:58 Dose: 50 mg Documented By: DARRYL Nicotine (Nicotine 21 Mg Patch.Td24) 21 mg TRANSDERMA DAILY [facility] Last Admin: 03/04/23 08:58 Dose: 21 mg Documented By: DARRYL Nicotine Polacrilex (Nicotine Polacrilex 2 Mg Gum) 4 mg BUCCAL Q2H PRN PRN Reason: Nicotine Cravings Non-Formulary Medication (Camphor-Menthol) 1 applic TOPICAL BID PRN PRN Reason: shoulder pain Olanzapine (Olanzapine 5 Mg Tablet) 5 mg PO TID PRN PRN Reason: agitation Omeprazole (Omeprazole 20 Mg Capsule.Dr) 20 mg PO DAILY@1630 [facility] Ondansetron HCl (Ondansetron Hcl 4 Mg/2 Ml Vial) 4 mg IVPUSH Q8H PRN PRN Reason: Nausea and Vomiting Pregabalin (Pregabalin 150 Mg Capsule) 150 mg PO 0900,1300,1800 [facility] Last Admin: 03/04/23 08:57 Dose: 150 mg Documented By: DARRYL Tiotropium [place] (Tiotropium [place] 2.5 Mcg Inhaler) 2 puff INHALE RDAILY [facility] Last Admin: 03/04/23 07:38 Dose: 2 puff Documented By: OCHOAFTOswaldo Trazodone HCl (Trazodone Hcl 50 Mg Tablet) 50 mg PO BEDTIME MRX1 PRN PRN Reason: Insomnia Labs 03/04/23 07:02 03/04/23 07:02 Labs: Laboratory Results - last 24 hr 03/04/23 03/04/23 07:02 07:02 MCV 89.3 MCH 29.9 MCHC 33.4 RDW 12.9 Plt Count 211 MPV 10.9 Immature Gran % (Auto) 0.4 Neut % (Auto) 47.7 Lymph % (Auto) 30.5 [place] % (Auto) 11.1 H Eos % (Auto) 8.9 H Baso % (Auto) 1.4 Lymph # (Auto) 1.5 [place] # (Auto) 0.6 Eos # (Auto) 0.5 H Baso # (Auto) 0.1 Abs Immat Gran (auto) 0.02 Absolute Neuts (auto) 2.4 Absolute Nucleated RBC 0.000 Nucleated RBC % (auto) 0.0 Anion Gap 14 Estim Creat Clear Calc 66.4 Estimated GFR 46 Random Glucose 103 Calcium 9.7 Assessment and Plan (1) History of cardiomyopathy: Status: Acute (2) Orthostatic hypotension: Status: Acute (3) Acute kidney injury: Status: Acute Plan 63-year-old male with history of moderate persistent asthma, history alcohol abuse, paroxysmal atrial fibrillation anticoagulated with Eliquis, congestive heart failure, orthostatic hypotension, history of cocaine abuse, history of hepatitis-C treated, hypertension, obstructive sleep apnea, and chronic wound of the right foot positive for MRSA on 02/28 on linezolid. #Hypotension/Orthostatic hypotension -persistent positive orthostatic BP , will continue to hold Entresto Lasix eplerenone, prazosin -Continue metoprolol, will give 1 additional L of IV normal saline Patient antipsychotic medication Vraylar can also cause orthostatic hypotension, if despite fluid resuscitation patient remains orthostatic, will discuss with psychiatry to adjust antipsychotic meds. -seen by [employer] recruiter they recommend to gradually introduce neurohormonal modulation?medications #Acute kidney injury -Creat 2.04 on admission improved to 1.55 today, baseline around 1.0 (noted on ED transfer paperwork) -will give additional 1 L of IV fluids avoid nephrotoxins, avoid hypotension follow BMP #Chronic wound R foot- clinically improved -positive MRSA culture,No significant PAD, no DM -Per ID, continue linezolid for total 7 days per ID -Wound care dressing daily. -Contact precautions #Paroxysmal atrial fibrillation- rate controlled -continue eliquis, amiodorone and metoprolol, aspirin discontinued #HfpEF -echo 03/02 showed normal LV systolic function with EF 55-60%, normal RV systolic function and [id number] RV dilatation. -hold furosemide, Entresto and eplerenone # opioid dependence -continue Suboxone #Depression -no si/hi -continue home meds DVT prophylaxis-on Eliquis Full code Patient need continued inpatient hospitalization for management of orthostatic hypotension and acute kidney injury. Time Spent With Patient Time: Total time managing care of this patient today ____ minutes. Quality Stroke Does the patient have a stroke diagnosis?: No VTE Prior VTE?: No VTE Risk Level:: Medical - moderate - high VTE Device Contraindication: Treatment Not Indicated VTE Drug Contraindication: N/A - Med Ordered
[2023-03-04] MEDS: 0.9 % Sodium Chloride 1,000 ML 100 ML IVCONT (13:02)
--- NOTE | 2023-03-04 13:22 | HO.WOUND ---
Wound Care Consult Reason for consult: Right foot wound Patient ambulating in room at the time of visit. He has a wound on his right lateral dorsal foot. When asked how the wound occurred, patient stated he had went to a prior hospital because of swelling in his legs and arms. He stated with all the swelling, an area had opened on his foot. When he was discharged from the hospital he was taking care of it himself, putting iodine on the wound daily. Today he states that alginate ag was put on it yesterday for the first time. When dressing removed, wound seemed on the dryer side. Asked if wound was draining a lot normally and he had stated it was draining more prior but now it seemed to have been special events planner. Small serosanguineous drainage on dressing. No odor. Wound bed appearance was medium pink granular tissue and medium fibrin/slough with dry wound edges. Wound edges are well defined and attached. No undermining or tunneling. Surrounding tissue was dry, intact and warm. Wound measured 3.7cm x 1.5cm x 0.4cm. Full thickness wound. Patient had no edema at this time. Palpable PT and DP pulses. Wound was cleansed with sea clense wound cleanser. Woun'dres applied to the wound base. Covered with non woven gauze and secured with kamala, tape and elastic retention netting. Recommendation: Patient would benefit from having santyl applied to the wound. It will help clean the wound bed and provide some moisture. Cleanse the wound with normal saline or sea clense wound cleanser. Apply santyl nickel thick to the wound bed when available, until then may continue to apply the woun'dres to the wound. Cover with gauze and secure with kamala, tape and elastic retention netting. Change dressing daily with either medication. If there are any changes with the wound or questions, please feel free to reconsult wound care.
--- NOTE | 2023-03-04 13:49 | MHC.CM.PN ---
After meeting with Patient,CM spoke with a Rep from [employer] @ [phone], who indicated that she believes that the [address] bus does go as far as [place] (Patient wants to go to [place] and then take a train to [facility]). [facility] was asked to confirm bus details with Rehab Physician/Fauzia @ [phone]; [facility] was only able to leave a detailed message for Fauzia. CM awaits a return call; Patient is not yet medically cleared for dc.[facility] will follow.
[2023-03-04] MEDS: Omeprazole 20 MG CAPSULE.DR PO (17:30)
[2023-03-05] VITALS (10 sets, daily range): BP systolic 79–111; BP diastolic 50–71; PULSE 55–70; RESP 20; TEMP 36.4–36.7; O2SAT 96–98
[2023-03-05 07:28] LABS: Anion Gap 12 (12-20); Blood Urea Nitrogen 24 mg/dL (9-16); Calcium 9.9 mg/dL (8.4-10.2); Carbon Dioxide 23 mmol/L (22-29); Chloride 107 mmol/L (96-108); Creatinine Clr Calc Pharmacy 83.7; Estimated Glomerular Filt Rate 60; Glucose Random 113 mg/dL (60-115); Potassium 4.5 mmol/L (3.3-5.1); Sodium 137 mmol/L (135-145)
[2023-03-05] MEDS: Buprenorphine/Naloxone 8/2 mg FILM 1 FILM SUBLINGUAL ×3 (09:49→18:29)
[2023-03-05] MEDS: Aspirin Enteric Coated 81 MG TABLET.DR PO (09:50)
[2023-03-05] MEDS: Metoprolol Succinate ER 25 MG TAB.ER.24H PO (09:50)
[2023-03-05] MEDS: Cariprazine HCl 1.5 MG CAPSULE 4.5 MG PO (09:50)
[2023-03-05] MEDS: Pregabalin 150 MG CAPSULE PO ×3 (09:51→18:28)
[2023-03-05] MEDS: Amiodarone HCL 200 MG TABLET PO (09:52)
[2023-03-05] MEDS: Apixaban 5 MG TABLET PO ×2 (09:52→20:49)
[2023-03-05] MEDS: Linezolid 600 MG TABLET PO ×2 (09:52→20:49)
[2023-03-05] MEDS: Acetaminophen 325 MG TABLET 650 MG PO (10:38)
--- NOTE | 2023-03-05 13:42 | P.PNIM_ITS ---
Subjective Subjective Date of Service: 03/05/23 Interval History: Complaining of lightheadedness/dizziness, denies chest pain, no shortness of breath, no palpitations, no fevers, no chills no other acute issues overnight , persistent orthostatic blood pressures , tolerating diet no nausea, no vomiting, no abdominal pain, no diarrhea. Review of Systems All other system reviewed and negative Physical Exam 2 Vital Signs: Vital Signs: Last Vital Signs Temp 97.8 F 03/05/23 10:59 Pulse 70 03/05/23 11:23 Resp 20 03/05/23 10:59 BP 79/55 L 03/05/23 11:23 Pulse Ox 97 03/05/23 10:59 O2 Del Method Room Air 03/05/23 10:59 BMI result Body Mass Index 29.8 Const: Other: General awake aler t x3, resting comf ortably in no acut e distress. Neck supple no JVD. C VS regular rate r hythm, Respiratory lungs clear to au scultation, no res piratory distress, no wheeze, no rho nchi. Gastrointest inal abdomen soft, nontender, bowel sounds audible, no guarding , no rig idity. Extremities no edema. Neuro n onfocal Skin smal l wound dorsum of right foot no drai nage, no surroundi ng erythema, mild eschar Objective Data Active Medications Acetaminophen (Acetaminophen 325 Mg Tablet) 650 mg PO Q6H PRN PRN Reason: Pain, Mild (Pain Scale 1-3) Last Admin: 03/05/23 10:38 Dose: 650 mg Documented By: ESTRELLA Al Hydroxide/Mg Hydroxide (Magnesium Hydrox/Alum Hydrox 30 Ml Oral.Susp) 30 ml PO Q6H PRN PRN Reason: Heartburn/Nausea Albuterol Sulfate (Albuterol Sulfate 90 Mcg 8 Gm Inhaler) 1 puff INHALE Q6H PRN PRN Reason: Wheezing Amiodarone HCl (Amiodarone Hcl 200 Mg Tablet) 200 mg PO DAILY [facility] Last Admin: 03/05/23 09:52 Dose: 200 mg Documented By: ESTRELLA Apixaban (Apixaban 5 Mg Tablet) 5 mg PO BID [facility] Last Admin: 03/05/23 09:52 Dose: 5 mg Documented By: ESTRELLA Aspirin (Aspirin Enteric Coated 81 Mg Tablet.Dr) 81 mg PO DAILY [facility] Last Admin: 03/05/23 09:50 Dose: 81 mg Documented By: ESTRELLA Buprenorphine/Naloxone (Buprenorphine/Naloxone 8/2 Mg Film) 1 film SUBLINGUAL 0900,1300,1800 [facility] Last Admin: 03/05/23 13:26 Dose: 1 film Documented By: ESTRELLA Capsaicin (Capsaicin 0.025% Cream 60 Gm Tube) 1 appl TOPICAL TID PRN; Protocol PRN Reason: Pain, Moderate(Pain Scale 4-6) Cariprazine (Cariprazine Hcl 1.5 Mg Capsule) 1.5 mg PO DAILY [facility] Last Admin: 03/05/23 12:58 Dose: Not Given Documented By: ESTRELLA Non-Admin Reason: Previously Administered Clonazepam (Clonazepam 0.5 Mg Tablet) 0.5 mg PO BID PRN PRN Reason: anxiety Diphenhydramine HCl (Diphenhydramine Hcl 25 Mg Capsule) 25 mg PO Q6H PRN PRN Reason: Itching Docusate Sodium (Docusate Sodium 100 Mg Capsule) 100 mg PO DAILY PRN PRN Reason: Constipation Fluticasone/Vilanterol (Fluticasone/Vilanterol 200/25 Blst.W.Dev) 1 puff INHALE RDAILY [facility] Last Admin: 03/05/23 08:45 Dose: Not Given Documented By: GERSON Non-Admin Reason: Patient Refused Hydroxyzine HCl (Hydroxyzine Hcl 25 Mg Tablet) 25 mg PO Q6H PRN PRN Reason: Anxiety Linezolid (Linezolid 600 Mg Tablet) 600 mg PO Q12H [facility] Last Admin: 03/05/23 09:52 Dose: 600 mg Documented By: ESTRELLA Magnesium Hydroxide (Milk Of Magnesia 30 Ml Oral.Susp) 30 ml PO DAILY PRN PRN Reason: Constipation Metoprolol Succinate (Metoprolol Succinate Er 25 Mg Tab.Er.24h) 25 mg PO DAILY [facility]; Protocol Last Admin: 03/05/23 09:50 Dose: 25 mg Documented By: ESTRELLA Nicotine (Nicotine 21 Mg Patch.Td24) 21 mg TRANSDERMA DAILY [facility] Last Admin: 03/05/23 09:53 Dose: Not Given Documented By: ESTRELLA Non-Admin Reason: Patient Refused Nicotine Polacrilex (Nicotine Polacrilex 2 Mg Gum) 4 mg BUCCAL Q2H PRN PRN Reason: Nicotine Cravings Olanzapine (Olanzapine 5 Mg Tablet) 5 mg PO TID PRN PRN Reason: agitation Omeprazole (Omeprazole 20 Mg Capsule.) 20 mg PO DAILY@1630 [facility] Last Admin: 03/04/23 17:30 Dose: 20 mg Documented By: DARRYL Ondansetron HCl (Ondansetron Hcl 4 Mg/2 Ml Vial) 4 mg IVPUSH Q8H PRN PRN Reason: Nausea and Vomiting Pregabalin (Pregabalin 150 Mg Capsule) 150 mg PO 0900,1300,1800 [facility] Last Admin: 03/05/23 12:58 Dose: 150 mg Documented By: ESTRELLA Tiotropium [place] (Tiotropium [place] 2.5 Mcg Inhaler) 2 puff INHALE RDAILY [facility] Last Admin: 03/05/23 08:45 Dose: Not Given Documented By: GERSON Non-Admin Reason: Patient Refused Trazodone HCl (Trazodone Hcl 50 Mg Tablet) 50 mg PO BEDTIME MRX1 PRN PRN Reason: Insomnia Labs 03/04/23 07:02 03/05/23 06:31 Labs: Laboratory Results - last 24 hr 03/05/23 06:31 Anion Gap 12 Estim Creat Clear Calc 83.7 Estimated GFR 60 Random Glucose 113 Calcium 9.9 Assessment and Plan (1) Acute kidney injury: Status: Acute (2) Orthostatic hypotension: Status: Acute Plan 63-year-old male with history of moderate persistent asthma, history alcohol abuse, paroxysmal atrial fibrillation anticoagulated with Eliquis, congestive heart failure, orthostatic hypotension, history of cocaine abuse, history of hepatitis-C treated, hypertension, obstructive sleep apnea, and chronic wound of the right foot positive for MRSA on 02/28 on linezolid. #Hypotension/Orthostatic hypotension -persistent positive orthostatic BP , Entresto Lasix eplerenone, prazosin discontinued, will low-dose of metoprolol to 25 mg daily status post 2 units of packed RBC antipsychotic medication Vraylar can also cause orthostatic hypotension, and therefore will decrease dose from 4 mg to 1.5 mg -seen by narcotics and vice detective they recommend to gradually introduce neurohormonal modulation?medications Follow-up prostatic be piece #Acute kidney injury -Creat 2.04 on admission , status post 2 L of IV fluid creatinine normalized avoid hypotension follow BMP #Chronic wound R foot- clinically improved -positive MRSA culture,No significant PAD, no DM -Per ID, continue linezolid for total 7 days -Wound care dressing daily. -Contact precautions #Paroxysmal atrial fibrillation- rate controlled -continue eliquis, amiodorone and metoprolol, aspirin discontinued #HfpEF -echo 03/02 showed normal LV systolic function with EF 55-60%, normal RV systolic function and [id number] RV dilatation. -hold furosemide, Entresto and eplerenone # opioid dependence -continue Suboxone #Depression -no si/hi -continue home meds DVT prophylaxis-on Eliquis Full code Patient need continued inpatient hospitalization for management of orthostatic hypotension Time Spent With Patient Time: Total time managing care of this patient today ____ minutes. Quality Stroke Does the patient have a stroke diagnosis?: No VTE Prior VTE?: No VTE Risk Level:: Medical - moderate - high VTE Device Contraindication: Treatment Not Indicated VTE Drug Contraindication: N/A - Med Ordered
[2023-03-05] MEDS: Omeprazole 20 MG CAPSULE.DR PO (16:01)
[2023-03-06] VITALS (9 sets, daily range): BP systolic 96–118; BP diastolic 55–79; PULSE 56–71; RESP 16–18; TEMP 36.3–36.6; O2SAT 96–100
[2023-03-06] MEDS: Fluticasone/Vilanterol 200/25 BLST.W.DEV 1 PUFF INHALE (07:50)
[2023-03-06] MEDS: Buprenorphine/Naloxone 8/2 mg FILM 1 FILM SUBLINGUAL ×2 (08:57→12:55)
[2023-03-06] MEDS: Cariprazine HCl 1.5 MG CAPSULE PO (08:58)
[2023-03-06] MEDS: Pregabalin 150 MG CAPSULE PO ×2 (08:58→12:55)
[2023-03-06] MEDS: Apixaban 5 MG TABLET PO (08:58)
[2023-03-06] MEDS: Metoprolol Succinate ER 25 MG TAB.ER.24H PO (08:58)
[2023-03-06] MEDS: Linezolid 600 MG TABLET PO (08:58)
[2023-03-06] MEDS: Amiodarone HCL 200 MG TABLET PO (08:58)
--- NOTE | 2023-03-06 10:33 | MHC.CM.PN ---
Per ROUNDS discussion, Patient will be medically cleared for dc to home today, self care. CM met with Patient at bedside and he indicated that he now has a ride home and the ride will be here at noon. CM relayed dc time to MD.
--- NOTE | 2023-03-06 10:58 | PM.DS ---
DS: Providers Provider Date of Service: 03/06/23 Date of admission: 03/03/23 16:03 Primary care physician: Junior Gauthier Consults: 03/03/23 16:08 Consult to Cardiology [place]ine [place]ing [place] [facility] [place] [facility] Reason for consultation: psych tx- bp med optimization 03/03/23 18:54 Consult to Infectious Diseases Routine Consulting Provider: Miriam Ayala Reason for consultation: requiring consult for linezolid continuation x 7 days as discussed DS: Diagnosis Discharge Diagnosis (1) Acute kidney injury: Status: Acute (2) Orthostatic hypotension: Status: Acute DS: Summary Hospital Course Hospital Course: History of presenting illness: Date of Service: 03/03/23 Attending physician on admission: Yannick Cutler Chief Complaint: hypotension 63-year-old male with history of moderate persistent asthma, history alcohol abuse, paroxysmal atrial fibrillation anticoagulated with Eliquis, congestive heart failure, orthostatic hypotension, history of cocaine abuse, history of hepatitis-C treated, hypertension, obstructive sleep apnea, and chronic wound of the right foot positive for MRSA on culture previously admitted to Adult Psychiatry being transferred to the medical floors for further management of hypotension/low blood pressures. Patient was previously admitted to Psychiatry for depression and suicidal statement but has been cleared psychiatrically and currently denies any SI/HI. Throughout his stay, blood pressure is soft and this morning had 2 episodes of hypotension and 87/53 and 72/43. He has also had episodes of positional lightheadedness found to have orthostatic hyotension, that last longer this morning about 1 minute. The patient did endorse that he had not been drinking much water. He is also on multiple antihypertensive agents in reports compliance with these outpatient. He does follow with anesthesia technician back home in [facility]. He was seen by cardiology this morning who feels the patient is on an appropriate outpatient medication regimen but may be over diuresed at this time. He does have slightly elevated creatinine at 2.04, baseline around 1.0, and potassium was slightly elevated at 5.3 but was noted to be moderately hemolyzed. He also has a mild hyponatremia of 133. Recommending admission for gentle hydration, holding all vasoactive medications and reintroducing as renal function improves. Continue amiodarone as well as eliquis. 63-year-old male with history of moderate persistent asthma, history alcohol abuse, paroxysmal atrial fibrillation anticoagulated with Eliquis, congestive heart failure, orthostatic hypotension, history of cocaine abuse, history of hepatitis-C treated, hypertension, obstructive sleep apnea, and chronic wound of the right foot positive for MRSA on 02/28 on linezolid admitted to medical floor with a diagnosis of orthostatic hypotension, patient was noted to have multiple antihypertensive medications at home,Entresto Lasix eplerenone, prazosin were discontinued, since BP remained low therefore dose of metoprolol was reduced to 25 mg will low-dose of metoprolol to 25 mg daily Patient was on multiple antipsychotic medication that were also contributing to orthostatic hypotension therefore dose of Vraylar decrease dose from 4 mg to 1.5 mg, since patient admitted that he requested his psychiatrist to increase dose otherwise he was doing fine on lower dosage, his other psychiatric medications Zyprexa, trazodone, hydroxyzine were also discontinued patient was treated with 2 L of IV fluid, patient orthostatic blood pressures this morning are within normal range, therefore he is being discharged home with recommendations to have close outpatient follow-up with Cardiology as well as Psychiatry #Acute kidney injury he was noted to have Creat 2.04 on admission , treated with 2 L of IV fluid creatinine normalized and blood pressure improved . # in regard to Chronic wound R foot- with positive MRSA culture, patient was continued on linezolid id recommend total 7 day course of antibiotic recommend to continue wound dressing as before. #Paroxysmal atrial fibrillation- recommend to continue eliquis, amiodorone and metoprolol dose reduced to 25 mg daily, aspirin discontinued. #HfpEF -history of cardiomyopathy, echo 03/02 showed normal LV systolic function with EF 55-60%, normal RV systolic function and [id number] RV dilatation, patient evaluated by anesthesia technician Dr. Chamorro he recommended to hold Entresto and eplerenone and to have continued close outpatient follow-up with Cardiology # opioid dependence -continue Suboxone #Depression admitted to Psychiatry with a diagnosis of suicidal ideation and depression at present patient denies any suicidal ideation recommend to follow up with Psychiatry as outpatient and continue home medications Time Spent with Patient Time attestation: Total time managing care of this patient today ____ minutes. Discharge coordination time: Greater than 30 minutes Quality: Safe Use of Opioids Does Pt have an Active Cancer Diagnosis on the Problem List?: No Quality: Stroke Does the patient have a stroke diagnosis?: No Physical Exam Vital Signs: Vital Signs: Last Vital Signs Temp 97.3 F 03/06/23 07:20 Pulse 71 03/06/23 08:05 Resp 16 03/06/23 07:52 BP 105/67 03/06/23 08:05 Pulse Ox 96 03/06/23 07:20 O2 Del Method Room Air 03/06/23 07:20 BMI result Body Mass Index 29.8 Const: Other: General awake aler t x3, resting comf ortably in no acut e distress. Neck supple no JVD. C VS regular rate r hythm, Respiratory lungs clear to au scultation, no res piratory distress, no wheeze, no rho nchi. Gastrointest inal abdomen soft, nontender, bowel sounds audible, no guarding , no rig idity. Extremities no edema. Neuro n onfocal Skin smal l wound dorsum of right foot no drai nage, no surroundi ng erythema, mild eschar Discharge Plan Discharge Patient Disposition: Home, Self-Care Discharge Diagnosis: Orthostatic hypotension Acute kidney injury Referrals: Junior Gauthier [Other] - 1 Week Discharge Medications: New metoprolol succinate 25 mg Tablet Extended Release 24 Hr 25 mg PO DAILY Qty: 30 0RF Protocol: Hold for SBP/HR < HOLD for SBP < : 90 HOLD for HR < : 60 Continued linezolid 600 mg Tablet 600 mg PO Q12H Qty: 0 0RF diphenhydramine HCl 25 mg Capsule 25 mg PO Q6H PRN (Reason: Itching) Qty: 0 0RF nicotine 21 mg/24 hr Patch 24 Hour 21 mg transdermal DAILY Qty: 0 0RF albuterol sulfate [Ventolin HFA] 90 mcg/actuation Hfa Aerosol Inhaler 1 puff inhalation Q6H PRN (Reason: Wheezing) Qty: 0 0RF Spiriva Respimat 2.5 mcg/actuation Mist 2 puff inhalation RDAILY Qty: 0 0RF nicotine (polacrilex) 2 mg Gum 4 mg buccal Q2H PRN (Reason: Nicotine Cravings) Qty: 0 0RF Eliquis 5 mg Tablet 5 mg PO BID Qty: 0 0RF amiodarone 200 mg Tablet 200 mg PO DAILY Qty: 0 0RF buprenorphine-naloxone [Suboxone] 8-2 mg Film 1 film sublingual 0900,1300,1800 Qty: 0 0RF acetaminophen 325 mg Tablet 650 mg PO Q6H PRN (Reason: Headache/Pain Mild Scale (1-3)) Qty: 0 0RF clonazepam 0.5 mg Tablet 0.5 mg PO BID PRN (Reason: anxiety) Qty: 0 0RF magnesium hydroxide [Milk of Magnesia] 400 mg/5 mL Suspension 30 ml PO DAILY PRN (Reason: Constipation) Qty: 0 0RF omeprazole 20 mg Capsule,Delayed Release(Dr/Ec) 20 mg PO DAILY@1630 Qty: 0 0RF hydroxyzine HCl 25 mg Tablet 25 mg PO Q6H PRN (Reason: Anxiety) Qty: 0 0RF capsaicin 0.025 % Cream 1 appl topical TID PRN (Reason: Pain, Moderate(Pain Scale 4-6)) Qty: 0 0RF Protocol: Apply to: Apply to: Shoulders and knees MAG-AL 200-200 mg/5 mL Suspension 30 ml PO Q6H PRN (Reason: Heartburn/Nausea) Qty: 0 0RF pregabalin [Lyrica] 150 mg Capsule 150 mg PO 0900,1300,1800 Qty: 0 0RF fluticasone furoate-vilanterol [Breo Ellipta] 200-25 mcg/dose Blister With Device 1 puff inhalation RDAILY Qty: 0 0RF Camphor-Menthol 1 applic topical BID PRNQty: 0 0RF Changed Vraylar 1.5 mg Capsule 1.5 mg PO DAILY Qty: 0 0RF Discontinued metoprolol succinate 50 mg Tablet Extended Release 24 Hr 50 mg PO DAILY Qty: 0 0RF Protocol: Hold for SBP/HR < HOLD for SBP < : 90 HOLD for HR < : 60 prazosin 1 mg Capsule 4 mg PO BEDTIME Qty: 0 0RF Protocol: Hold for SBP< HOLD for SBP < : 90 aspirin 81 mg Tablet,Delayed Release (Dr/Ec) 81 mg PO DAILY Qty: 0 0RF eplerenone 25 mg Tablet 25 mg PO DAILY Qty: 0 0RF trazodone 50 mg Tablet 50 mg PO BEDTIME MRX1 PRN (Reason: Insomnia) Qty: 0 0RF olanzapine 5 mg Tablet 5 mg PO TID PRN (Reason: agitation) Qty: 0 0RF Discharge Orders: Discharge Order (Routine); Ordered 03/06/23 Ordered By: Yannick Cutler Diet: Advance to usual diet Activity on Discharge: As tolerated Stand Alone Forms: Patient Portal Discharge page Care Plan Goals: Stop all medications as above Dose of Vraylar reduced to 1.5 mg discussed with psychiatry regarding dosage adjustment Take all other medications as prescribed stop LInezolid on 03/09/23 Continue right foot dressing as before. Health Concerns: History of cardiomyopathy/smoking/mood disorder continue medications as above with close outpatient follow-up primary care physician, Psychiatry and Cardiology Plan of Treatment: Outpatient follow-up with Cardiology call to make an appointment, outpatient follow-up with Psychiatry call to make an appointment Assessment: As above
== END 2023-03-06 13:55 | disposition home or self-care (01) ==
PROVIDERS: Admitting Provider Physician Assistant; PCP Student in an Organized Health Care Education/Training Program; Visit Provider Hospitalist
DX: I95.1 Orthostatic hypotension (principal); N17.9 Acute kidney failure, unspecified; A49.02 Methicillin resistant Staphylococcus aureus infection, unspecified site; L03.115 Cellulitis of right lower limb; J45.909 Unspecified asthma, uncomplicated; I48.0 Paroxysmal atrial fibrillation; F10.11 Alcohol abuse, in remission; F14.10 Cocaine abuse, uncomplicated; F17.200 Nicotine dependence, unspecified, uncomplicated; Z71.6 Tobacco abuse counseling; Z79.891 Long term (current) use of opiate analgesic; Z79.01 Long term (current) use of anticoagulants; Z86.718 Personal history of other venous thrombosis and embolism; Z86.79 Personal history of other diseases of the circulatory system
CPT/HCPCS: 36415; 80048; 85025; 94640; 96360; 96361; 99222

== ENCOUNTER → 2023-03-03 16:03 | Outpatient (BNV) | payer OTHER, SELFPAY | PROVIDERS: Admitting Provider Physician Assistant; Visit Provider Internal Medicine | DX: L03.119 Cellulitis of unspecified part of limb (principal) | CPT/HCPCS: 99221 ==

== ENCOUNTER → 2023-03-03 16:03 | Outpatient (BNV) | payer OTHER, SELFPAY | PROVIDERS: Admitting Provider Physician Assistant; Visit Provider Physician Assistant | DX: N17.9 Acute kidney failure, unspecified (principal); I95.1 Orthostatic hypotension | CPT/HCPCS: 99223; 99233; 99239 ==

== ENCOUNTER → 2023-03-03 16:03 | Outpatient (BNV) | payer OTHER, SELFPAY | PROVIDERS: Admitting Provider Physician Assistant; Visit Provider Internal Medicine Cardiovascular Disease | DX: I95.9 Hypotension, unspecified (principal); Z86.79 Personal history of other diseases of the circulatory system | CPT/HCPCS: 99233 ==